=== PATIENT | female | born 1985 | race Two or more races ===

== ENCOUNTER 2021-08-04 12:53 | Outpatient (REF) | payer MEDICAID, SELFPAY ==
--- NOTE | ~2021-08-04 | XR_ITS ---
EXAMINATION: XR knee LT 4V, XR knee RT 4V CLINICAL INFORMATION: Pain COMPARISON: None TECHNIQUE: 4 views of the bilateral knees XR/XR knee LT 4V FINDINGS/IMPRESSION: RIGHT KNEE: No acute fracture or dislocation. Joint spaces are maintained. No joint effusion. Soft tissues are unremarkable. LEFT KNEE: No acute fracture or dislocation. Joint spaces are maintained. No joint effusion. Soft tissues are unremarkable.
--- NOTE | ~2021-08-04 | XR_ITS ---
EXAMINATION: XR knee LT 4V, XR knee RT 4V CLINICAL INFORMATION: Pain COMPARISON: None TECHNIQUE: 4 views of the bilateral knees XR/XR knee RT 4V FINDINGS/IMPRESSION: RIGHT KNEE: No acute fracture or dislocation. Joint spaces are maintained. No joint effusion. Soft tissues are unremarkable. LEFT KNEE: No acute fracture or dislocation. Joint spaces are maintained. No joint effusion. Soft tissues are unremarkable.
== END 2021-08-04 12:54 | disposition home or self-care (01) ==
LOC: HO.XRAY 12:53
PROVIDERS: Absent Provider Internal Medicine; PCP Internal Medicine; Visit Provider Registered Nurse
DX: M25.561 Pain in right knee (principal); M25.562 Pain in left knee
CPT/HCPCS: 73564

== ENCOUNTER 2022-01-25 13:39 | Outpatient (REF) | payer MEDICAID, SELFPAY ==
--- NOTE | ~2022-01-25 | XR_ITS ---
EXAMINATION: XR ABDOMEN COMPLETE CLINICAL INDICATION: Drug-induced constipation. COMPARISON: None TECHNIQUE: 2 views of the abdomen. FINDINGS: There is scattered stool seen throughout the colon without any significant distention. There is no organomegaly. No radiopaque calculi. No gross bony abnormality. There are surgical adi seen in the left upper quadrant from previous intervention. XR/XR abdomen min 2V IMPRESSION: Mild constipation. Postsurgical changes in the left upper quadrant.
== END 2022-01-25 13:40 | disposition home or self-care (01) ==
LOC: HO.LAB 13:39
PROVIDERS: PCP Internal Medicine; Visit Provider Internal Medicine
DX: K59.03 Drug induced constipation (principal)
CPT/HCPCS: 74019

== ENCOUNTER 2022-04-05 10:03 | Outpatient (REF) | payer MEDICAID, SELFPAY ==
--- NOTE | ~2022-04-05 | XR_ITS ---
EXAMINATION: XR LUMBOSACRAL SPINE WITH OBLIQUES CLINICAL INFORMATION: Low back pain COMPARISON: MR abdomen 12/24/2018. TECHNIQUE: Lumbosacral spine is imaged in 5 views including oblique projections. FINDINGS: There is normal lumbar segmentation with 5 nonrib-bearing lumbar vertebrae of normal height and normal lumbar lordosis. There is no lumbar vertebral compression, spondylolisthesis, or destructive process. There is no focal disc narrowing or endplate sclerosis or erosive changes. Oblique view show no spondylolysis. The SI joints and visualized sacrum are unremarkable. XR/XR lumbar spine 4V min IMPRESSION: Unremarkable examination.
== END 2022-04-05 10:04 | disposition home or self-care (01) ==
LOC: HO.XRAY 10:03
PROVIDERS: PCP Internal Medicine; Visit Provider Emergency Medicine
DX: M54.50 Low back pain, unspecified (principal)
CPT/HCPCS: 72110

== ENCOUNTER 2022-07-07 03:10 | Emergency (ER) | payer MEDICAID, SELFPAY ==
[2022-07-07 03:23] VITALS: BP 115/61; PULSE 99; RESP 16; TEMP 36.6; O2SAT 100; BMI 38.4
--- NOTE | 2022-07-07 03:27 | ECG_ITS ---
Test Reason : ABD PAIN Blood Pressure : / mmHG Vent. Rate : 091 BPM Atrial Rate : 091 BPM P-R Int : 142 ms QRS Dur : 074 ms QT Int : 354 ms P-R-T Axes : 050 075 028 degrees QTc Int : 435 ms Normal sinus rhythm Normal ECG No significant changes when compared with the previous EKG of 18 may 2018 Referred By: Generic ED Physician Electronically Signed By:MOUNIKA MARIE
--- OUTSIDE RECORDS SUMMARY | 2022-07-07 03:55 | XMS_ITS | Continuity of Care Document ---
:1985 Author Organization [facility] Address [address] [place] [id number]- Care Team Providers Name Role Phone Jamie CAMARGO, Alexandra Amor Primary Care Physician [place] [facility] [place]17[place] - 10/17/[address] [address]- Discharge Disposition: A-D/C Walkout Attending Physician: Not on Staff, Attending MD Admitting Physician: Not on Staff, Admitting MD Referring Physician: Not on Staff, Referring MD Allergies, Adverse Reactions, Alerts Substance Reaction Severity Status dandelion Active Immunizations Given and Recorded Vaccine Date Status Refusal Reason pneumococcal 23-valent vaccine1 03/10/13 Given 1Early/Late Reason: Med Not Available Medications [place] 0.025% ophthalmic solution 1 drops, Eyes, Both, Every 8 hours, # 10 mL, 0 Refills, Maintenance, Solution Start Date: 08/10/12 Status: OrderedAlbuterol = 2.5 mg, 0 Refills, Maintenance Start Date: 08/10/12 Status: OrderedColace sodium 100 mg oral capsule 2 capsule = 200 mg, By Mouth, 2 times a day, PRN for constipation, # 120 capsule, 11 Refills, Maintenance, Capsule, 2 capsule By Mouth 2 times a day,x30 days,PRN:for constipation Start Date: 02/08/13 Stop Date: 02/03/14 Status: OrderedDulcolax 5 mg oral enteric coated tablet 2 tablet = 10 mg, By Mouth, Every 72 hours, PRN for constipation, # 20 tablet, 11 Refills, Maintenance, EC Tablet, 2 tablet By Mouth Every 72 hours,x30 days,PRN:for constipation Start Date: 02/08/13 Stop Date: 02/03/14 Status: Orderedfluticasone 50 mcg/inh nasal spray 2 sprays, Daily, 0 Refills, Maintenance Start Date: 08/10/12 Status: Orderedibuprofen 600 mg oral tablet 1 tablet = 600 mg, By Mouth, 3 times a day, with food or milk, # 30 tablet, 0 Refills, Maintenance Start Date: 04/02/13 Stop Date: 04/07/13 Status: Orderedloratadine 10 mg oral tablet 1 tablet = 10 mg, By Mouth, Daily, 0 Refills, Maintenance Start Date: 08/10/12 Status: OrderedMaalox Plus Liquid 30 mL, By Mouth, Every 4 hours, PRN Dyspepsia, 0 Refills, Maintenance, Suspension Start Date: 03/10/13 Status: OrderedMiraLax oral powder for reconstitution = 17 Gm, By Mouth, 2 times a day, # 1,020 Gm, 11 Refills, Maintenance, 17 Gm By Mouth 2 times a day Start Date: 02/08/13 Stop Date: 02/03/14 Status: Orderedomeprazole 20 mg oral enteric coated capsule 1 capsule = 20 mg, By Mouth, Daily, 0 Refills, Maintenance Start Date: 02/08/13 Status: Orderedondansetron 4 mg oral tablet 1 tablet = 4 mg, By Mouth, Every 8 hours, # 10 tablet, 0 Refills, Maintenance Start Date: 04/02/13 Status: OrderedProventil HFA 90 mcg/inh inhalation aerosol with adapter 2 puffs, Inhalation, 4 times a day, 0 Refills, Maintenance Start Date: 08/10/12 Status: OrderedPulmicort Flexhaler 180 mcg 2 puffs, Inhalation, 2 times a day, 0 Refills, Maintenance Start Date: 08/10/12 Status: OrderedSaline Nasal Mist See Instructions, 0 Refills, Maintenance Start Date: 08/10/12 Status: Ordered Vital Signs Most recent to oldest [Reference 1 2 3 Range]: Oxygen Saturation [94-100 %] 98 % 100 % 100 % (10/17/21 12:14 PM) (10/17/21 7:52 AM) (10/17/21 7:40 AM) Pulse Rate [55-90 bpm] 78 bpm 84 bpm 108 bpm (10/17/21 12:14 PM) (10/17/21 7:52 AM) *H* (10/17/21 7:40 AM) Blood Pressure [90-138/55-84 mm 127/57 mm Hg 126/61 mm Hg Hg] (10/17/21 12:14 PM) (10/17/21 7:52 AM) Respiratory Rate [16-30 br/min] 16 br/min (10/17/21 7:52 AM) Temperature [96.8-100.4 DegF] 98.8 DegF 98.4 DegF (10/17/21 12:14 PM) (10/17/21 7:52 AM) Mode of Delivery (Oxygen) Room air Room air Room a ir (10/17/21 12:14 PM) (10/17/21 7:52 AM) (10/17/21 7:40 AM) Blood pressure sites Arm, right Arm, right (10/17/21 12:14 PM) (10/17/21 7:52 AM) Temperature Route Oral Oral (10/17/21 12:14 PM) (10/17/21 7:52 AM)
--- OUTSIDE RECORDS SUMMARY | 2022-07-07 03:55 | XMS_ITS | Continuity of Care Document ---
:1985 Author Organization [facility] Address [address] [place] [id number]- Care Team Providers Name Role Phone Korey OLIVEIRA, Maya Primary Care Physician Encounter [facility] [place] Date(s): 06/18/22 - 06/18/[address] [address]- Discharge Disposition: A-D/C Walkout Attending Physician: Not [...] Refills, Maintenance Start Date: 08/10/12 Status: Ordered Problem List Condition Confirmation Course Effective Dates Status Health Stat us Informant Obese class I Confirmed Active Vital Signs Most recent to oldest [Reference 1 2 3 Range]: Oxygen Saturation [94-100 %] 100 % 98 % 100 % (06/18/22 3:08 PM) (06/18/22 1:14 PM) (06/18/22 11:06 AM) Pulse Rate [55-90 bpm] 73 bpm 78 bpm 78 bpm (06/18/22 3:08 PM) (06/18/22 1:14 PM) (06/18/22 11:06 AM) Blood Pressure [90-138/55-84 mm 111/48 mm Hg 118/56 mm Hg 111/61 mm Hg Hg] (06/18/22 3:08 PM) (06/18/22 1:14 PM) (06/18/22 11:06 AM) Respiratory Rate [16-30 br/min] 18 br/min 20 br/min (06/18/22 11:06 AM) (06/18/22 2:35 AM) Temperature [96.8-100.4 DegF] 98.3 DegF 98.4 DegF 98 .0 DegF (06/18/22 3:08 PM) (06/18/22 1:14 PM) (06/18/22 11:06 AM) Mode of Delivery (Oxygen) Room air Room air Room a ir (06/18/22 3:08 PM) (06/18/22 1:14 PM) (06/18/22 11:06 AM) Blood pressure sites Arm, right Arm, right Arm, right (06/18/22 3:08 PM) (06/18/22 1:14 PM) (06/18/22 11:06 AM) Temperature Route Oral Oral Oral (06/18/22 3:08 PM) (06/18/22 1:14 PM) (06/18/22 11:06 AM) Patient Care team information Care Team PersonnelName: Maya Nair MD Position: [facility] Outreach Member Role: PCP Address: Address: [address] [place] [address]- Care Team Related PersonsName: JAYLIN RILEY Address: home [address] [place] [address] Name: PT SAYS NONE, NONE
[2022-07-07 04:17] VITALS: BP 115/57; PULSE 94; RESP 17; TEMP 36.8; O2SAT 96
--- NOTE | 2022-07-07 05:42 | ED_ITS ---
HPI - Abdominal Pain General Chief Complaint: Abdominal Pain Stated Complaint: pain in abd Time Seen by Provider: 07/07/22 05:42 Source: patient Mode of arrival: ambulatory Limitations: no limitations History of Present Illness HPI narrative: patient with history of hiatal hernia status post cholecystectomy been having epigastric pain off and on since 1222 been to [facility] did a CT scan diagnosed her with hiatal hernia plan to see tour narrator for endoscopy also patient complaining of dysuria for last 4 months no fever no chills no nausea no vomiting Related Data Allergies Allergy/AdvReac Type Severity Reaction Status Date / Time No Known Allergies Allergy Unverified 02/27/20 16:07 [No Known Allergies*] Review of Systems Review of Systems Yes all other systems are reviewed and are [facility] Social History Social History Advance Directives: No Physical Exam ED Vital Signs: Vital Signs - 24 hr 07/07/22 03:23 07/07/22 04:17 07/07/22 06:29 Temperature 97.9 F 98.2 F Pulse Rate 99 94 80 Respiratory Rate 16 17 18 Blood Pressure 115/61 115/57 L 104/52 L Pulse Oximetry 100 96 98 Oxygen Delivery Method Room Air Room Air 07/07/22 07:00 Temperature 98.5 F Pulse Rate 86 Respiratory Rate 14 Blood Pressure 118/58 L Pulse Oximetry 98 Oxygen Delivery Method Room Air BMI result Body Mass Index 38.4 Appearance: Alert. Oriented X3. No acute distress. Eyes: no pallor or icterus ENT: Pharynx normal. Oral Mucosa moist Neck: Normal inspection. Neck supple. CVS: Normal heart rate and rhythm. Pulses normal. Respiratory: No respiratory distress. Equal air entry bilateral, Abdomen: Soft, mild epigastric tendernessBowel sounds are present, no mass palpable, no CVA tenderness Skin: Skin warm and dry. Normal skin color. Normal skin turgor. Extremities: No lower extremity edema. No calf tenderness Neuro: Oriented X 3. Medical Decision Making Lab Data Labs: Lab Results 07/07/22 07/07/22 Range/Units 06:02 06:02 Urine Color Yellow Urine Appearance Clear Urine pH 6.0 (5.0-9.0) Ur Specific [place] 1.025 (1.005-1.025) Urine Protein Negative (Neg-Trace) mg/dL Urine Glucose (UA) Negative (Negative) mg/dL Urine Ketones Negative (Negative) mg/dL Urine Blood Negative (Negative) Urine Nitrite Negative (Negative) Ur Leukocyte Esterase Moderate (2+) H (Negative) Urine RBC 0-2 (0-2) /HPF Urine WBC 11-20 H (0-5) /HPF Ur Squamous Epith Cells 3-5 (0-2) /HPF Urine Bacteria None Seen (None Seen) Hyaline Casts 0-2 (0-2) /LPF Urine Test NEGATIVE (NEGATIVE) Medications Administered Discontinued Medications Generic Name Dose Route Start Last Admin Trade Name Freq PRN Reason Stop Dose Admin Al Hydroxide/Mg Hydroxide 30 ml 07/07/22 05:53 07/07/22 06:00 Magnesium Hydrox/Alum Hydrox 30 Ml Oral.Susp PO 07/07/22 05:54 30 ml ONCE ONE Administration Discharge Plan Discharge Clinical Impression: Chronic gastritis, UTI (urinary tract infection) Patient Disposition: Home, Self-Care Instructions: Gastritis (ED), Urinary Tract Infection in Women (ED) Additional Instructions: continue taking Prilosec start taking sucralfate an antibiotic for UTI follow-up with your tour narrator as scheduled avoid fried and spicy food
[2022-07-07] MEDS: Magnesium Hydrox/Alum Hydrox 30 ML ORAL.SUSP PO (06:00)
[2022-07-07 06:11] LABS: Appearance Urine Clear; Color Urine Yellow; Glucose Urine UA Negative (Negative); Leukocyte Esterase Urine Moderate (2+) (Negative); Nitrite Urine Negative (Negative); Specific Gravity - Urine 1.025 (1.005-1.025); UMIC TRIGGER UACC YES; Urine Blood Negative (Negative); Urine Ketones Negative (Negative); Urine Protein Negative (Neg-Trace)
[2022-07-07 06:12] LABS: UPreg QC Valid YES; Urine Pregnancy NEGATIVE (NEGATIVE)
--- NOTE | 2022-07-07 06:13 | PC.NURSE ---
pt resting on stretcher at this time, no apparent distress. Medicated per MAR, urine sample collected
[2022-07-07 06:16] LABS: Bacteria Urine None Seen (None Seen); Hyaline Casts Urine 0-2 /LPF (0-2); RBC Urine 0-2 /HPF (0-2); UACC Culture Trigger YES
[2022-07-07 06:29] VITALS: BP 104/52; PULSE 80; RESP 18; O2SAT 98
[2022-07-07 07:00] VITALS: BP 118/58; PULSE 86; RESP 14; TEMP 36.9; O2SAT 98
== END 2022-07-07 07:18 | disposition home or self-care (01) ==
PROVIDERS: Emergency Provider Internal Medicine
DX: K29.50 Unspecified chronic gastritis without bleeding (principal); N39.0 Urinary tract infection, site not specified; Z79.899 Other long term (current) drug therapy
CPT/HCPCS: 81001; 81025; 87086; 93005; 99283; 99284

== ENCOUNTER 2022-08-16 10:57 | Outpatient (REF) | payer MEDICAID, SELFPAY ==
--- NOTE | ~2022-08-16 | XR_ITS ---
EXAMINATION: XR KNEE, RIGHT CLINICAL INFORMATION: Chronic pain. Checking patellar alignment. COMPARISON: None TECHNIQUE: Two views of the right knee. FINDINGS: Bones and soft tissues are normal. No fracture or joint effusion. Alignment is anatomic. Joint spaces are well maintained. No abnormal soft tissue calcification. XR/XR knee RT 2V IMPRESSION: Unremarkable right knee exam.
== END 2022-08-16 10:58 | disposition home or self-care (01) ==
LOC: HO.XRAY 10:57
PROVIDERS: PCP Registered Nurse; Visit Provider Registered Nurse
DX: M25.561 Pain in right knee (principal); G89.29 Other chronic pain
CPT/HCPCS: 73560

== ENCOUNTER 2022-09-12 08:08 | Outpatient (REF) | payer MEDICAID, SELFPAY ==
[2022-09-12 16:56] LABS: Urine Cytology See Pathology rpt
== END 2022-09-12 08:09 | disposition home or self-care (01) ==
LOC: HO.LAB 08:08
PROVIDERS: PCP Registered Nurse; Visit Provider Urology
DX: N39.41 Urge incontinence (principal)
CPT/HCPCS: 51798; 88112; 99202

== ENCOUNTER 2022-10-17 09:25 | Outpatient (REF) | payer MEDICAID, SELFPAY ==
--- NOTE | ~2022-10-17 | US_ITS ---
EXAMINATION: US RETROPERITONEAL LIMITED (RENAL ONLY) CLINICAL INFORMATION: Other symptoms and signs involving the genitourinary system. COMPARISON: X-ray abdomen 01/25/2022. MRI abdomen 12/24/2018. Ultrasound abdomen complete with elastography 06/27/2018. Ultrasound abdomen 12/17/2008. TECHNIQUE: Real-time imaging of the kidneys. FINDINGS: RIGHT KIDNEY: 10.2 x 5.7 x 5.5 cm (SAG x AP x TRV). The kidney is normal in size, contour, and echogenicity. Renal cortical thickness is normal. There are 2 small echogenic foci in the midpole of the right kidney questionable small stones versus vascular reflectors. No focal parenchymal lesions. No hydronephrosis. LEFT KIDNEY: 10.3 x 4.7 x 5.6 cm (SAG x AP x TRV). The kidney is normal in size, contour, and echogenicity. Renal cortical thickness is normal. No calculi or focal parenchymal lesions. No hydronephrosis. US/US renal BI IMPRESSION: No definite stone seen. Question 2 small stones in the midpole of the right kidney versus vascular reflectors.
== END 2022-10-17 09:26 | disposition home or self-care (01) ==
LOC: HO.US 09:25
PROVIDERS: PCP Registered Nurse; Visit Provider Urology
DX: R39.89 Other symptoms and signs involving the genitourinary system (principal); N39.41 Urge incontinence
CPT/HCPCS: 76775

== ENCOUNTER 2022-11-14 11:54 | Outpatient (REF) | payer MEDICAID, SELFPAY ==
--- NOTE | ~2022-11-14 | XR_ITS ---
EXAMINATION: XR LUMBOSACRAL SPINE CLINICAL INFORMATION: Back pain for one month. COMPARISON: None available. TECHNIQUE: Three views of the lumbosacral spine. FINDINGS: The vertebral bodies and posterior elements are normal. The disc spaces are preserved and the vertebral alignment is normal. The paraspinal soft tissues appear unremarkable. Upper abdominal and right lower quadrant surgical clips. XR/XR lumbar spine 2-3V IMPRESSION: Unremarkable examination.
== END 2022-11-14 11:55 | disposition home or self-care (01) ==
LOC: HO.HHCX 11:54
PROVIDERS: Visit Provider Registered Nurse
DX: M54.50 Low back pain, unspecified (principal)
CPT/HCPCS: 72100

== ENCOUNTER → 2022-11-18 09:40 | Outpatient (BNVA) | payer MEDICAID, SELFPAY | PROVIDERS: PCP Registered Nurse; Visit Provider Urology | DX: N81.89 Other female genital prolapse (principal); R39.89 Other symptoms and signs involving the genitourinary system; N39.41 Urge incontinence | CPT/HCPCS: 99212 ==

== ENCOUNTER 2022-12-23 13:54 | Outpatient (REF) | payer MEDICAID, SELFPAY ==
[2022-12-23 16:06] LABS: MANUAL DIFF FLAG NO
[2022-12-23 16:17] LABS: Basophils Absolute Auto 0.1 X10*3/uL (0.0-0.2); Basophils Percent Auto 0.7 % (0-2); Eosinophils Absolute Auto 0.1 X10*3/uL (0.0-0.4); Eosinophils Percent Auto 1.5 % (0-4); Hematocrit 38.3 % (37.0-47.0); Hemoglobin 12.3 g/dl (12.0-16.0); Imm Gran Abs Auto 0.08 X10*3/uL (0.00-0.03); Imm Gran Pct Auto 0.9 % (0.0-0.4); Lymphocytes Absolute Auto 2.7 X10*3/uL (1.2-4.9); Mean Corpuscular HGB Conc 32.1 g/dl (31.0-35.0); Mean Corpuscular Hemoglobin 26.8 pg (27.0-33.0); Mean Corpuscular Volume 83.4 fL (80.0-98.0); Mean Platelet Volume 11.2 fL (9.4-12.3); Monocytes Absolute Auto 0.5 X10*3/uL (0.1-1.2); Monocytes Percent Auto 5.6 % (2-11); Neutrophils Absolute Auto 5.9 x10*3/uL (2.0-8.3); Neutrophils Percent Auto 62.3 % (45-73); Platelet Count 382 X10*3/uL (160-400); Red Blood Count 4.59 X10*6/uL (4.20-5.50); Red Cell Distribution Width 14.2 % (11.0-16.0); White Blood Count 9.4 X10*3/uL (4.8-10.8)
[2022-12-23 16:54] LABS: Alanine Aminotransferase 10 U/L (0-31); Albumin Level 4.2 g/dL (3.5-5.0); Alkaline Phosphatase 112 U/L (39-117); Anion Gap 12 (12-20); Aspartate Amino Transferase 13 U/L (5-31); Bilirubin Total 0.3 mg/dL (0.0-1.0); Blood Urea Nitrogen 11 mg/dL (9-16); Calcium 10.1 mg/dL (8.4-10.2); Carbon Dioxide 24 mmol/L (22-29); Chloride 107 mmol/L (96-108); Estimated Glomerular Filt Rate > 60; Glucose Random 82 mg/dL (60-115); Lipase 13 U/L (8-78); Sodium 139 mmol/L (135-145); Total Protein 7.9 g/dL (6.5-8.0)
[2022-12-23 17:23] LABS: Vitamin B12 518 pg/mL (200-900)
== END 2022-12-23 13:55 | disposition home or self-care (01) ==
LOC: HO.HHCL 13:54
PROVIDERS: Visit Provider Emergency Medicine
DX: R10.13 Epigastric pain (principal)
CPT/HCPCS: 36415; 80053; 82607; 83690; 85025

== ENCOUNTER 2023-01-19 14:00 | Outpatient (RCR) | payer MEDICAID, SELFPAY ==
--- NOTE | 2023-01-03 09:57 | MHC.PT.EP ---
[facility] [place] Office [place] Office [place] Office [address] Erin Chau [address] [phone] F: [phone] F: [phone] F: [phone] F: [phone] Physical Therapy Plan of Care Date of Evaluation: Date of Surgery: NA Diagnosis: Other female genital prolapse Urge incontinence Assessment: Yoselyn is a 37 year old female who is referred to PT for other female genital prolapse and urge incontinence . She reports of having symptoms of urinary urgency, UI with coughing, sneezing, laughing, running, walking, and lifting boxes. She also reports of having UI with running water. In addition she urinates 5/day and 3/ night. Also reports of having constipation- 2 BM/ week, pain in lower abdomen at the end of the day and pain at the vaginal opening during penetration. She has had these symptoms since the of her 4th child in Mar 2020. On PT examination she presents with poor voluntary and involuntary contraction, pain externally over B ischiocavernosus, internally over B ischiocavernosus, B superficial and deep transverse perineal, B illiococcygeus, B OI and 11o clock position on the 2nd layer. Due to these impairments she has the above mentioned functional impairments. She would benefit from skilled PT to address the aforementioned impairments and improve tolerance to functional activities. Frequency and Duration: The patient will be seen 1/week for 8 weeks Short Term Goals: 1. Pt will report of having decrease in [place] 50% in 2 weeks. 2. Pt will drop night voiding from 3 to 1 in 3 weeks. 3. Pt will present with no pain with internal exam which will enable her to tolerate penetration during sexual activity without pain in 4 weeks. Long-Term Goals: 1. Pt will demonstrate an increase in PFM muscle strength by 1 grade which will prevent any UI with walking, lifting and running in 6 weeks. 2. Pt will be independent with [facility] for symptom management and maintenance following d/c in 8 weeks. Treatment Plan: Modalities to reduce pain, spasms and effusion. Manual therapy to restore motion and function. Therapeutic exercise to improve strength and flexibility. Neuromuscular re-education for posture and balance. Therapeutic activities to return to functional activities of daily living. Electronically signed by: Please sign and return to therapist. Thank you for your referral.
--- NOTE | 2023-02-09 10:24 | MHC.PT.DC ---
[facility] [place] Office [place] Office [place] Office [address] Erin Chau [address] [phone] F: [phone] F: [phone] F: [phone] F: [phone] Physical Therapy Discharge Report Diagnosis: Other female genital prolapse Urge incontinence Date of Surgery: NA Date of Evaluation: 01/03/23 Date of Discharge: 02/09/23 Treatments to Date: 3 Cancellations to Date: 0 No Shows to Date: 3 Discharge Status: Visit Non-compliance Discharge Summary: Yoselyn attended 3 visits and no showed 3 after that. She is therefore being d/c from PT for non compliance. Electronically signed by: Rama Wiley PT DPT Please sign and return to therapist. Thank you for your referral.
== END 2023-02-09 10:25 | disposition home or self-care (01) ==
LOC: HO.PT 14:00
PROVIDERS: PCP Registered Nurse; Visit Provider Urology
DX: N81.89 Other female genital prolapse (principal); N39.41 Urge incontinence
CPT/HCPCS: 97110; 97112; 97140; 97161

== ENCOUNTER 2023-01-27 18:34 | Outpatient (REF) | payer MEDICAID, SELFPAY ==
[2023-01-27 19:58] LABS: Influenza A PCR NEGATIVE (Negative); Influenza B PCR NEGATIVE (Negative); Resp Syncy Virus RNA Qual PCR NEGATIVE (Negative); SARS COV2 PCR INHOUSE NEGATIVE (Negative)
== END 2023-01-27 18:35 | disposition home or self-care (01) ==
LOC: HO.HHCLNP 18:34
PROVIDERS: Visit Provider Nurse Practitioner Primary Care
DX: Z20.822 Contact with and (suspected) exposure to COVID-19 (principal); J02.9 Acute pharyngitis, unspecified
CPT/HCPCS: 0241U; 87070

== ENCOUNTER 2023-03-09 08:15 | Outpatient (REF) | payer MEDICAID, SELFPAY ==
--- NOTE | ~2023-03-09 | CT_ITS ---
EXAMINATION: CT ABDOMEN AND PELVIS WITHOUT CONTRAST CLINICAL INFORMATION: Other abnormal findings in urine COMPARISON: Previous renal ultrasound October 2022, and abdominal MRI December 2018 TECHNIQUE: Multidetector volumetric imaging was performed from the superior aspect of the liver through the pubic symphysis. Sagittal and coronal reformatted images were obtained on the technologist's workstation. This CT examination was performed using dose optimization techniques as appropriate, variously including the following: *Automated exposure control *Adjustment of mA and/or kV according to patient size (this includes techniques or standardized protocols for targeted exams where dose is matched to indication/reason for exam; i.e. extremities or head) *Use of iterative reconstruction technique DLP: 687 mGy-cm FINDINGS: LUNG BASES: The visualized lung bases are unremarkable. LIVER, GALLBLADDER, AND BILIARY TREE: The liver is normal in size, and contour. There is a 1.3 x 2 cm low-attenuation area in the medial segment of the left lobe of the liver. This is new from previous exams. No other focal liver lesion. No biliary duct dilatation. The gallbladder has been removed. PANCREAS: Unremarkable. SPLEEN: Unremarkable. ADRENAL GLANDS: Unremarkable. KIDNEYS AND URETERS: The 3 mm nonobstructing stone in the mid left kidney. The kidneys are otherwise normal. BLADDER: Not optimally distended. GASTROINTESTINAL TRACT: The small and large bowel are unremarkable. The appendix is unremarkable. Postsurgical changes from gastric sleeve. ABDOMINAL WALL: No significant hernia is appreciated. LYMPH NODES: Normal. VASCULAR: Unremarkable. PELVIC VISCERA: Unremarkable. OSSEOUS STRUCTURES: Unremarkable. CT/CT abdomen pelvis wo IV con IMPRESSION: Small nonobstructing stone in the mid left kidney. Kidneys are otherwise normal. Bladder not optimally distended. New 1.3 x 2 cm low-attenuation area in the medial segment of the left lobe of the liver. Further characterization with liver MRI recommended. 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 Fleischner guidelines were followed.
== END 2023-03-09 08:16 | disposition home or self-care (01) ==
LOC: HO.CT 08:15
PROVIDERS: PCP Registered Nurse; Visit Provider Urology
DX: R82.998 Other abnormal findings in urine (principal); N28.89 Other specified disorders of kidney and ureter
CPT/HCPCS: 74176

== ENCOUNTER 2023-03-13 08:21 | Outpatient (AMB) | payer MEDICAID, SELFPAY ==
--- NOTE | 2023-03-13 08:23 | A.OFFVIS_ITS ---
Intake Intake Visit Reasons: follow up/CT Intake Note: Patient presents today for a follow-up on Urinary Incontinence/CT Scan Results: CT Completed on 03/09/2023. Meds- Myrbetriq Allergies to Antibiotic- No Known Allergies Blood Thinner- None PVR- 35 mL Distance Education Faculty Liaison Required: No Accompanied by: Self / Same As Patient Allergies No Known Allergies [No Known Allergies*] Allergy (Verified 11/18/22 10:01) Medication List - Last Reconciled 03/13/23 by Samreen Gil MD albuterol sulfate 90 mcg/actuation (Ventolin HFA) 0 mcg inhalation fluticasone propionate 50 mcg/actuation 1 spray intranasal DAILY loratadine 10 mg PO QAM mirabegron ER (Myrbetriq) 25 mg PO DAILY sodium chloride 0.65% (Deep Sea Nasal) 2 sprays intranasal HPI HPI Comments History of Present Illness Details Yoselyn is a 37-year-old female who presents today to the office for a follow-up. 03/13/2023? She is followed today for CT. She was last seen by me on 11/18/2022 for pelvic floor weakness and LUTS. Renal US results reviewed--10/17/22--Calcifications noted and it was unclear that if it might have been? stones versus vascular calcification.?CT KUB prior was ordered for further evaluation, and Myrbetriq 25 mg QD was ordered during that time. I reviewed the CT abdomen/pelvis results from 03/09/2023 revealed small nonobstructing stone in the mid left kidney. Kidneys are otherwise normal. Bladder not optimally distended. New 1.3 x 2 cm low- attenuation area in the medial segment of the left lobe of the liver.? She mentions that she is still having urine leakage with coughing and sneezing. She has been taking Myrbetriq 25 mg. Notes that the urinary urgency has improved. Review of charts: Last visit: 11/18/22-- The patient was scheduled for cystoscopy which she canceled as she was sick. I discussed with her renal US findings of 10/17/22 which are indicative of no renal masses and calcifications noted which were unclear for stones versus vascular calcification.? The patient complains having urinary urgency and leakage with sneezing.? Denies dysuria.? Renal US results reviewed--10/17/22--Calcifications noted and it was unclear that if it might have been? stones versus vascular calcification.? Urine cytology?09/12/22--Negative for malignancy.? Evaluation today-- Blood: negative, leukocytes: negative.? Plan:? At this time will hold on cystoscopy. Discussed to start with PT for strengthening the pelvic muscles.? CT KUB prior was ordered for further evaluation.? Myrbetriq 25 mg QD was ordered.? Follow-up after 4 months or sooner if needed. 03/13/2023: Evaluation today?UA? leukocy elan: negative; blood: negative; bladder scan PVR: 35 mL. Diet sheet for renal calculi prevention was provided to the patient. Discussed to reduce sodium intake. Discussed to consume adequate amount of water. Discussed Low oxalate diet---green leafy vegetable, nuts, and tea in moderation as they are rich in oxalate. 03/13/2023: Plan: Continue Myrbetriq 25 mg. Diet sheet was provided. 24-hour urine collection test was tyrone lima. Referred to Gastroenterology due to CAT scan findings of liver lesion. Will schedule urodynamics. Follow-up in 10 weeks. [facility] Medical History Dysphagia Rectal bleeding Anemia Asthma Surgical History History of sleeve gastrectomy Family History Father No problems noted. Mother No problems noted. Social History Alcohol intake: current Alcohol intake frequency: does not drink Patient Tobacco Use Status: Never used Tobacco Review of Systems Const Reports no additional complaints Eyes Reports no additional complaints ENT Reports no additional complaints Card Denies dyspnea Resp Denies cough and Denies dyspnea GI Reports no additional complaints Reports no additional complaints Musc Reports no additional complaints Skin/Breast Denies rash and Denies unusual bruising Neuro Reports no additional complaints Psych Reports no additional complaints Endo Reports no additional complaints Raul/Lymph Reports no additional complaints Aller/Immun Reports no additional complaints Physical Exam Const General: cooperative, healthy appearing and no acute distress Orientation/consciousness: patient oriented x3 HEENT Head: Yes normal to inspection, Yes normocephalic and Yes atraumatic Eyes Conjunctivae: conjunctivae normal Neck Neck: Yes normal visual inspection and Yes trachea midline Chest Chest palpation & inspection: normal inspection of the chest Resp Effort & Inspection: normal respiratory effort Cardio Rate: regular rate GI Inspection: Yes normal to inspection Skin General skin exam: no rashes or lesions noted Neuro General: patient oriented x3 Extrem General: No edema Psych Appearance: grossly normal Office Procedures Post Void Residual Post Residual Void Post Void Residual (PVR): 35 [id number] Void Residual by ultrasound Results AMB Urinalysis, Automated UA Leukoctes 0 Shai/uL Last Edit by MIAH Johnson on 03/13/23 08:44 UA Nitrite Negative Last Edit by MIAH Johnson on 03/13/23 08:44 UA Urobilinogen 1 mg/dL Last Edit by MIAH Johnson on 03/13/23 08:44 UA Protein 30 mg/dL Last Edit by MIAH Johnson on 03/13/23 08:44 UA pH 6.0 Last Edit by MIAH Johnson on 03/13/23 08:44 UA Blood 0 Frank/uL Last Edit by MIAH Johnson on 03/13/23 08:44 UA Specific [place] 1.030 Last Edit by MIAH Johnson on 03/13/23 08: 44 UA Ketone Positive Last Edit by MIAH Johnson on 03/13/23 08:44 5mg/dL Alfredo Jean 03/13/23 08:44 UA Bilirubin 1 mg/dL Last Edit by MIAH Johnson on 03/13/23 08:44 UA Glucose 0 mg/dL Last Edit by MIAH Johnson on 03/13/23 08:44 Results Reviewed Results Reviewed: Laboratory Last Values Urine pH (Auto) 6.0 03/13/23 08:25 Specific [place] (Auto) 1.030 03/13/23 08:25 Urine Protein (Auto) 30 mg/dL 03/13/23 08:25 Glucose (UA)(Auto) 0 mg/dL 03/13/23 08:25 Urine Ketones (Auto) Positive 03/13/23 08:25 Urine Blood (Auto) 0 Frank/uL 03/13/23 08:25 Urine Nitrite (Auto) Negative 03/13/23 08:25 Urine Bilirubin (Auto) 1 mg/dL 03/13/23 08:25 Urine Urobilinogen (Auto) 1 mg/dL 03/13/23 08:25 Leukocyte Esterase (Auto) 0 Shai/uL 03/13/23 08:25 Date of Service: 03/09/23 EXAMINATION: CT ABDOMEN AND PELVIS WITHOUT CONTRAST?? CLINICAL INFORMATION: Other abnormal findings in urine?? COMPARISON: Previous renal ultrasound October 2022, and abdominal MRI December 2018 FINDINGS: LUNG BASES: The visualized lung bases are unremarkable.?? LIVER, GALLBLADDER, AND BILIARY TREE: The liver is normal in size, and contour. There is a 1.3 x 2 cm low-attenuation area in the medial segment of the left lobe of the liver. This is new from previous exams. No other focal liver lesion. No biliary duct dilatation. The gallbladder has been removed. PANCREAS: Unremarkable.?? SPLEEN: Unremarkable.?? ADRENAL GLANDS: Unremarkable.?? KIDNEYS AND URETERS: The 3 mm nonobstructing stone in the mid left kidney. The kidneys are otherwise normal.?? BLADDER: Not optimally distended.?? GASTROINTESTINAL TRACT: The small and large bowel are unremarkable. The appendix is unremarkable. Postsurgical changes from gastric sleeve. ABDOMINAL WALL: No significant hernia is appreciated.?? LYMPH NODES: Normal. VASCULAR: Unremarkable. PELVIC VISCERA: Unremarkable.?? OSSEOUS STRUCTURES: Unremarkable.?? IMPRESSION: Small nonobstructing stone in the mid left kidney. Kidneys are otherwise normal. Bladder not optimally distended. New 1.3 x 2 cm low-attenuation area in the medial segment of the left lobe of the liver. Further characterization with liver MRI recommended. 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 Assessment & Plan Assessment & Plan (1) Pelvic floor weakness: Code(s): N81.89 - Other female genital prolapse (2) Sensation of pressure in bladder area: Code(s): R39.89 - Other symptoms and signs involving the genitourinary system (3) Urge incontinence of urine: Code(s): N39.41 - Urge incontinence (4) Liver lesion: Code(s): K76.9 - Liver disease, unspecified (5) Kidney stone on left side: Code(s): N20.0 - Calculus of kidney Plan Continue Myrbetriq 25 mg. Diet sheet was provided. 24-hour urine collection test was ordered. Referred to Gastroenterology due to CAT scan findings of liver lesion. Will schedule urodynamics. Follow-up in 10 weeks. Orders: Orders AMB Urinalysis Automated Today Z13.9 - Encounter for screening, unspecified AMB Post Void Residual by ultrasound Today N39.8 - Other specified disorders of urinary system Medications: Refilled mirabegron ER (Myrbetriq) 25 mg PO DAILY 90 tabs 1RF Patient Instructions: The patient had an opportunity to ask questions regarding treatment plan. All questions were answered. Imaging, Laboratory studies and physical exam results were discussed and reviewed in detail. No major barriers to understanding were identified. The patient expressed understanding and agreement with the above treatment plan.? ? ? The patient is aware they should contact our office by phone for worsening of their current condition or the appearance of new symptoms. Compliance is encouraged with any medications and followup testing that is ordered.? ? ? It is a privilege to be allowed the opportunity to participate in the urologic care of your patient. If you have any questions or concerns regarding treatment for the above conditions please do not hesitate to contact me. The office telephone contact is [phone].? ? ? This note is constructed in part using voice recognition software. While every effort has been made to ensure accuracy last chalker errors may have been included.? ? ? Yours sincerely,? ? ? Samreen Gil MD? Coding Level of Care Code Est Pt Level 4 (86270) Diagnoses Pelvic floor weakness N81.89 Sensation of pressure in bladder area R39.89 Urge incontinence of urine N39.41 Liver lesion K76.9 Kidney stone on left side N20.0 CPT Codes Post Residual Void - PVR CPT Code: 92650-Aten Void Residual by ultrasound ([id number])
== END 2023-03-13 09:24 | disposition home or self-care (01) ==
PROVIDERS: PCP Registered Nurse; Visit Provider Urology
DX: N81.89 Other female genital prolapse (principal); R39.89 Other symptoms and signs involving the genitourinary system; N39.41 Urge incontinence; K76.9 Liver disease, unspecified; N20.0 Calculus of kidney; Z13.9 Encounter for screening, unspecified
CPT/HCPCS: 99214

== ENCOUNTER → 2023-03-13 08:21 | Outpatient (BNVA) | payer MEDICAID, SELFPAY | PROVIDERS: PCP Registered Nurse; Visit Provider Urology | DX: N20.0 Calculus of kidney (principal); N39.41 Urge incontinence; N81.89 Other female genital prolapse; R39.89 Other symptoms and signs involving the genitourinary system; K76.9 Liver disease, unspecified | CPT/HCPCS: 51798; 81003; 99212 ==

== ENCOUNTER 2023-03-17 18:14 | Outpatient (REF) | payer MEDICAID, SELFPAY | END 2023-03-17 18:15 | disposition home or self-care (01) | LOC: HO.LNP 18:14 | PROVIDERS: Visit Provider Emergency Medicine | DX: R30.0 Dysuria (principal) | CPT/HCPCS: 87086 ==

== ENCOUNTER 2023-05-22 08:33 | Outpatient (AMB) | payer MEDICAID, SELFPAY ==
--- NOTE | 2023-05-22 08:34 | A.OFFVIS_ITS ---
Intake Intake Visit Reasons: 10w/litholink Intake Note: Patient presents today for a follow-up on on [employer]ol[employer] 24 hour urine collection Results. Meds- Myrbetriq Allergies to Antibiotic- No Known Allergies Blood Thinner- None Per Diem Physical Therapist Required: No Accompanied by: Self / Same As Patient Allergies No Known Allergies [No Known Allergies*] Allergy (Verified 11/18/22 10:01) Medication List - Last Reconciled 05/22/23 by Samreen Gil MD albuterol sulfate 90 mcg/actuation (Ventolin HFA) 0 mcg inhalation fluticasone propionate 50 mcg/actuation 1 spray intranasal DAILY loratadine 10 mg PO QAM mirabegron ER (Myrbetriq) 50 mg PO DAILY sodium chloride 0.65% (Deep Sea Nasal) 2 sprays intranasal HPI HPI Comments History of Present Illness Details Yoselyn is a 37-year-old female who presents today to the office for a follow-up. She is followed for LUTS of urinary incontinence, urgency and nephrolithiasis. 05/21/2023? She was last seen by me on 03/13/2023 at which time I reviewed the CT abdomen/pelvis results from 03/09/2023 which revealed small nonobstructing stone in the mid left kidney. Kidneys are otherwise normal. New 1.3 x 2 cm low- attenuation area in the medial segment of the left lobe of the liver.?And The pt was referred to GI. She has been taking Myrbetriq 25 mg. Notes that the urinary incontinence has improved. But feels still voiding frequently every 2 hrs. Discussed 24 hour urine results: Total volume 1.39 mL, Calcium 130 mg; Oxalate 17 mg, Sodium 71, Citrate 602 mg. Instructed on importance of increasein fluid intake. 05/22/2023: Evaluation today?UA? leukocy elan: 1+; blood: negative Review of charts: Imaging: Renal US results reviewed--10/17/22--Calcifications noted and it was unclear that if it might have been? stones versus vascular calcification.? CT abdomen/pelvis results from 03/09/2023 revealed small nonobstructing stone in the mid left kidney. Labs: Urine cytology?09/12/22--Negative for malignancy.? 05/22/2023: Plan: Change to increase Myrbetriq 50 mg daily from 25 mg 24-hour urine collection test reviewed. Instructed to increase fluids to 2 liters Follow-up in 4months Renal us prior [facility] Medical History Dysphagia Rectal bleeding Anemia Asthma Surgical History History of sleeve gastrectomy Family History Father No problems noted. Mother No problems noted. Social History Alcohol intake: current Alcohol intake frequency: does not drink Patient Tobacco Use Status: Never used Tobacco Review of Systems Const Reports no additional complaints Eyes Reports no additional complaints ENT Reports no additional complaints Card Denies dyspnea Resp Denies cough and Denies dyspnea GI Reports no additional complaints Reports no additional complaints Musc Reports no additional complaints Skin/Breast Denies rash and Denies unusual bruising Neuro Reports no additional complaints Psych Reports no additional complaints Endo Reports no additional complaints Raul/Lymph Reports no additional complaints Aller/Immun Reports no additional complaints Results AMB Urinalysis, Automated UA Leukoctes 70 Shai/uL Last Edit by MIAH Johnson on 05/22/23 08:50 1+ Alfredo Jean 05/22/23 08:50 UA Nitrite Negative Last Edit by MIAH Johnson on 05/22/23 08:50 UA Urobilinogen 0.2 mg/dL Last Edit by MIAH Johnson on 05/22/23 08:5 0 UA Protein 15 mg/dL Last Edit by MIAH Johnson on 05/22/23 08:50 UA pH 6.0 Last Edit by MIAH Johnson on 05/22/23 08:50 UA Blood 0 Frank/uL Last Edit by MIAH Johnson on 05/22/23 08:50 UA Specific [place] 1.020 Last Edit by MIAH Johnson on 05/22/23 08: 50 UA Ketone Negative Last Edit by MIAH Johnson on 05/22/23 08:50 UA Bilirubin 0 mg/dL Last Edit by MIAH Johnson on 05/22/23 08:50 UA Glucose 0 mg/dL Last Edit by MIAH Johnson on 05/22/23 08:50 Results Reviewed Results Reviewed: Laboratory Last Values Urine pH (Auto) 6.0 05/22/23 08:48 Specific [place] (Auto) 1.020 05/22/23 08:48 Urine Protein (Auto) 15 mg/dL 05/22/23 08:48 Glucose (UA)(Auto) 0 mg/dL 05/22/23 08:48 Urine Ketones (Auto) Negative 05/22/23 08:48 Urine Blood (Auto) 0 Frank/uL 05/22/23 08:48 Urine Nitrite (Auto) Negative 05/22/23 08:48 Urine Bilirubin (Auto) 0 mg/dL 05/22/23 08:48 Urine Urobilinogen (Auto) 0.2 mg/dL 05/22/23 08:48 Leukocyte Esterase (Auto) 70 Shai/uL 05/22/23 08:48 Date of Service: 03/09/23 EXAMINATION: CT ABDOMEN AND PELVIS WITHOUT CONTRAST CLINICAL INFORMATION: Other abnormal findings in urine COMPARISON: Previous renal ultrasound October 2022, and abdominal MRI December 2018 TECHNIQUE: Multidetector volumetric imaging was performed from the superior aspect of the liver through the pubic symphysis. Sagittal and coronal reformatted images were obtained on the technologist's workstation. This CT examination was performed using dose optimization techniques as appropriate, variously including the following: *Automated exposure control *Adjustment of mA and/or kV according to patient size (this includes techniques or standardized protocols for targeted exams where dose is matched to indication/reason for exam; i.e. extremities or head) *Use of iterative reconstruction technique DLP: 687 mGy-cm FINDINGS: LUNG BASES: The visualized lung bases are unremarkable. LIVER, GALLBLADDER, AND BILIARY TREE: The liver is normal in size, and contour. There is a 1.3 x 2 cm low-attenuation area in the medial segment of the left lobe of the liver. This is new from previous exams. No other focal liver lesion. No biliary duct dilatation. The gallbladder has been removed. PANCREAS: Unremarkable. SPLEEN: Unremarkable. ADRENAL GLANDS: Unremarkable. KIDNEYS AND URETERS: The 3 mm nonobstructing stone in the mid left kidney. The kidneys are otherwise normal. BLADDER: Not optimally distended. GASTROINTESTINAL TRACT: The small and large bowel are unremarkable. The appendix is unremarkable. Postsurgical changes from gastric sleeve. ABDOMINAL WALL: No significant hernia is appreciated. LYMPH NODES: Normal. VASCULAR: Unremarkable. PELVIC VISCERA: Unremarkable. OSSEOUS STRUCTURES: Unremarkable. IMPRESSION: Small nonobstructing stone in the mid left kidney. Kidneys are otherwise normal. Bladder not optimally distended. New 1.3 x 2 cm low-attenuation area in the medial segment of the left lobe of the liver. Further characterization with liver MRI recommended. 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 Assessment & Plan Assessment & Plan (1) Pelvic floor weakness: Code(s): N81.89 - Other female genital prolapse (2) Sensation of pressure in bladder area: Code(s): R39.89 - Other symptoms and signs involving the genitourinary system (3) Urge incontinence of urine: Code(s): N39.41 - Urge incontinence (4) Kidney stone on left side: Code(s): N20.0 - Calculus of kidney Plan Change to increase Myrbetriq 50 mg daily from 25 mg 24-hour urine collection test reviewed. Instructed to increase fluids to 2 liters Follow-up in 4months Renal us prior Orders: Orders US renal BI 3 Months N20.0 - Calculus of kidney AMB Urinalysis Automated Today Z13.9 - Encounter for screening, unspecified Medications: New mirabegron ER (Myrbetriq) 50 mg PO DAILY 90 tabs 3RF Patient Instructions: The patient had an opportunity to ask questions regarding treatment plan. All questions were answered. Imaging, Laboratory studies and physical exam results were discussed and reviewed in detail. No major barriers to understanding were identified. The patient expressed understanding and agreement with the above treatment plan. The patient is aware they should contact our office by phone for worsening of their current condition or the appearance of new symptoms. Compliance is encouraged with any medications and followup testing that is ordered. It is a privilege to be allowed the opportunity to participate in the urologic care of your patient. If you have any questions or concerns regarding treatment for the above conditions please do not hesitate to contact me. The office telephone contact is [phone]. This note is constructed in part using voice recognition software. While every effort has been made to ensure accuracy creative services director errors may have been included. Yours sincerely, Samreen Gil MD Coding Level of Care Code Est Pt Level 4 (97320) Diagnoses Pelvic floor weakness N81.89 Sensation of pressure in bladder area R39.89 Urge incontinence of urine N39.41 Kidney stone on left side N20.0
== END 2023-05-22 09:36 | disposition home or self-care (01) ==
PROVIDERS: PCP Registered Nurse; Visit Provider Urology
DX: N81.89 Other female genital prolapse (principal); R39.89 Other symptoms and signs involving the genitourinary system; N39.41 Urge incontinence; N20.0 Calculus of kidney; Z13.9 Encounter for screening, unspecified
CPT/HCPCS: 99214

== ENCOUNTER → 2023-05-22 08:33 | Outpatient (BNVA) | payer MEDICAID, SELFPAY | PROVIDERS: PCP Registered Nurse; Visit Provider Urology | DX: N81.89 Other female genital prolapse (principal); N39.41 Urge incontinence; N20.0 Calculus of kidney; R39.89 Other symptoms and signs involving the genitourinary system | CPT/HCPCS: 81003; 99212 ==

== ENCOUNTER 2023-05-25 15:31 | Outpatient (REF) | payer MEDICAID, SELFPAY ==
--- NOTE | ~2023-05-25 | MR_ITS ---
EXAMINATION: MR ABDOMEN WITHOUT AND WITH CONTRAST CLINICAL INFORMATION: Liver lesion. COMPARISON: CT abdomen/pelvis 03/09/2023 MRI abdomen 12/24/2018 TECHNIQUE: MR abdomen was performed without and with use of 10 mL intravenous Gadavist gadolinium contrast. Postcontrast images are performed in multiphase dynamic sequences. Imaging was performed in 3 planes. FINDINGS: LUNG BASES: The visualized lung bases are unremarkable. LIVER, GALLBLADDER, AND BILIARY TREE: There is drop in signal of the hepatic parenchyma with opposed phase imaging. The liver is normal in size and contour. There is no corresponding space-occupying lesion in the medial aspect of the left hepatic lobe. There is associated drop in signal intensity on opposed phase images suggesting fat infiltration. The gallbladder is not visualized. PANCREAS: No ductal dilatation. SPLEEN: Not enlarged. ADRENAL GLANDS: No adrenal mass. KIDNEYS AND URETERS: The kidneys are normal in size, shape, and enhance symmetrically. No hydronephrosis. No perinephric stranding. GASTROINTESTINAL TRACT: No bowel obstruction. No ascites or fluid collection. ABDOMINAL WALL: No significant hernia is appreciated. LYMPH NODES: No bulky lymphadenopathy. VASCULAR: Normal caliber abdominal aorta. MR/MR abdomen wo/w con IMPRESSION: Hepatic steatosis most likely contributing to pseudomass seen on recent CT.
[2023-05-25] MEDS: gadobutroL 10 ML VIAL IVPUSH (17:46)
== END 2023-05-25 15:32 | disposition home or self-care (01) ==
LOC: HO.MRI 15:31
PROVIDERS: PCP Registered Nurse; Visit Provider Registered Nurse
DX: K76.9 Liver disease, unspecified (principal)
CPT/HCPCS: 74183; A9585

== ENCOUNTER 2023-06-15 16:01 | Outpatient (REF) | payer MEDICAID, SELFPAY | END 2023-06-15 16:02 | disposition home or self-care (01) | LOC: HO.HHCLNP 16:01 | PROVIDERS: Visit Provider Advanced Practice Midwife | DX: Z11.3 Encounter for screening for infections with a predominantly sexual mode of transmission (principal) | CPT/HCPCS: 0353U ==

== ENCOUNTER 2023-06-28 09:55 | Outpatient (REF) | payer MEDICAID, SELFPAY ==
[2023-06-28 11:26] LABS: MANUAL DIFF FLAG NO
[2023-06-28 11:31] LABS: Basophils Absolute Auto 0.1 X10*3/uL (0.0-0.2); Basophils Percent Auto 0.7 % (0-2); Eosinophils Absolute Auto 0.3 X10*3/uL (0.0-0.4); Hemoglobin 10.5 g/dl (12.0-16.0); Imm Gran Abs Auto 0.03 X10*3/uL (0.00-0.03); Imm Gran Pct Auto 0.3 % (0.0-0.4); Lymphocytes Absolute Auto 2.7 X10*3/uL (1.2-4.9); Lymphocytes Percent Auto 28.8 % (20-40); Mean Corpuscular HGB Conc 30.9 g/dl (31.0-35.0); Mean Platelet Volume 10.9 fL (9.4-12.3); Monocytes Absolute Auto 0.7 X10*3/uL (0.1-1.2); Monocytes Percent Auto 6.9 % (2-11); Neutrophils Absolute Auto 5.6 x10*3/uL (2.0-8.3); Neutrophils Percent Auto 60.3 % (45-73); Platelet Count 448 X10*3/uL (160-400); Red Cell Distribution Width 14.1 % (11.0-16.0); White Blood Count 9.4 X10*3/uL (4.8-10.8)
[2023-06-28 12:00] LABS: Alanine Aminotransferase 13 U/L (0-31); Alkaline Phosphatase 95 U/L (39-117); Anion Gap 9 (12-20); Aspartate Amino Transferase 14 U/L (5-31); Bilirubin Total 0.2 mg/dL (0.0-1.0); Blood Urea Nitrogen 8 mg/dL (9-16); Calcium 9.4 mg/dL (8.4-10.2); Carbon Dioxide 26 mmol/L (22-29); Chloride 107 mmol/L (96-108); Estimated Glomerular Filt Rate > 60; Glucose Random 96 mg/dL (60-115); Iron 31 mcg/dL (30-160); Percent Iron Saturation 9 % (15-50); Potassium 3.6 mmol/L (3.3-5.1); Sodium 138 mmol/L (135-145); Total Iron Binding Capacity 355 mcg/dL (228-428); Total Protein 7.5 g/dL (6.5-8.0); Unsaturated Iron Binding 324 ug/dL
== END 2023-06-28 09:56 | disposition home or self-care (01) ==
LOC: HO.HHCL 09:55
PROVIDERS: Visit Provider Emergency Medicine
DX: R42 Dizziness and giddiness (principal)
CPT/HCPCS: 36415; 80053; 83540; 85025

== ENCOUNTER 2023-09-21 08:44 | Outpatient (AMB) | payer MEDICAID, SELFPAY ==
--- NOTE | 2023-09-21 08:55 | A.OFFVIS_ITS ---
Intake Visit Reasons: 4m/US Intake Note: Patient presents today for a follow-up on on Ultrasound Results. 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 She is followed for LUTS of urinary incontinence, urgency and nephrolithiasis. She doing well on Myrbetriq. She complains of left flank pain. Since last visit 05/22/23, GI was sent a referral due to changes noted in liver on CT, provider ordered an MRI abdomen which I have reviewed. Liver is WNL, Kidneys enhance appropriately. Will continue anticholinergic therapy, CT stone protocol. Review of chart: 05/22/2023? She was last seen by me on 03/13/2023 at which time I reviewed the CT abdomen/pelvis results from 03/09/2023 which revealed small nonobstructing stone in the mid left kidney. Kidneys are otherwise normal. New 1.3 x 2 cm low- attenuation area in the medial segment of the left lobe of the liver.?And The pt was referred to GI. She has been taking Myrbetriq 25 mg. Notes that the urinary incontinence has improved. But feels still voiding frequently every 2 hrs. Discussed 24 hour urine results: Total volume 1.39 mL, Calcium 130 mg; Oxalate 17 mg, Sodium 71, Citrate 602 mg. Instructed on importance of increasein fluid intake. 05/22/2023: Evaluation today?UA? leukocytes: 1+; blood: negative Imaging: Renal US results reviewed--10/17/22--Calcifications noted and it was unclear that if it might have been? stones versus vascular calcification.? CT abdomen/pelvis results from 03/09/2023 revealed small nonobstructing stone in the mid left kidney. Labs: Urine cytology?09/12/22--Negative for malignancy.? 09/21/23: Plan: Cont Myrbetriq, CT stone protocol [facility] Medical History Dysphagia Rectal bleeding Anemia Asthma Surgical History History of sleeve gastrectomy Family History Father No problems noted. Mother No problems noted. Social History Alcohol intake: current Alcohol intake frequency: does not drink Patient Tobacco Use Status: Never used Tobacco Review of Systems Const All systems reviewed & are unremarkable except as noted in HPI and below Reports no additional complaints Eyes Reports no additional complaints ENT Reports no additional complaints Card Reports no additional complaints Resp Reports no additional complaints GI Reports no additional complaints Reports as per HPI Musc Reports no additional complaints Skin/Breast Reports system reviewed and no additional complaints, except as documented Neuro Reports no additional complaints Psych Reports no additional complaints Endo Reports no additional complaints Raul/Lymph Reports no additional complaints Aller/Immun Reports no additional complaints Office Procedures Post Void Residual Post Residual Void Post Void Residual (PVR): 0 60424-Vadj Void Residual by ultrasound Results AMB Urinalysis, Automated UA Leukoctes 0 Shai/uL Last Edit by MIAH Johnson on 09/21/23 09:08 UA Nitrite Negative Last Edit by MIAH Johnson on 09/21/23 09:08 UA Urobilinogen 0.2 mg/dL Last Edit by MIAH Johnson on 09/21/23 09:0 8 UA Protein 15 mg/dL Last Edit by MIAH Johnson on 09/21/23 09:08 UA pH 6.0 Last Edit by MIAH Johnson on 09/21/23 09:08 UA Blood 0 Frank/uL Last Edit by MIAH Johnson on 09/21/23 09:08 UA Specific [place] 1.015 Last Edit by MIAH Johnson on 09/21/23 09: 08 UA Ketone Negative Last Edit by YORDY JohnsonA on 09/21/23 09:08 UA Bilirubin 0 mg/dL Last Edit by MIAH Johnson on 09/21/23 09:08 UA Glucose 0 mg/dL Last Edit by MIAH Johnson on 09/21/23 09:08 Results Reviewed Results Reviewed: Laboratory Last Values Urine pH (Auto) 6.0 09/21/23 09:02 Specific [place] (Auto) 1.015 09/21/23 09:02 Urine Protein (Auto) 15 mg/dL 09/21/23 09:02 Glucose (UA)(Auto) 0 mg/dL 09/21/23 09:02 Urine Ketones (Auto) Negative 09/21/23 09:02 Urine Blood (Auto) 0 Frank/uL 09/21/23 09:02 Urine Nitrite (Auto) Negative 09/21/23 09:02 Urine Bilirubin (Auto) 0 mg/dL 09/21/23 09:02 Urine Urobilinogen (Auto) 0.2 mg/dL 09/21/23 09:02 Leukocyte Esterase (Auto) 0 Shai/uL 09/21/23 09:02 Date of Service: 05/25/23 EXAMINATION: MR ABDOMEN WITHOUT AND WITH CONTRAST CLINICAL INFORMATION: Liver lesion. COMPARISON: CT abdomen/pelvis 03/09/2023 MRI abdomen 12/24/2018 TECHNIQUE: MR abdomen was performed without and with use of 10 mL intravenous Gadavist gadolinium contrast. Postcontrast images are performed in multiphase dynamic sequences. Imaging was performed in 3 planes. FINDINGS: LUNG BASES: The visualized lung bases are unremarkable. LIVER, GALLBLADDER, AND BILIARY TREE: There is drop in signal of the hepatic parenchyma with opposed phase imaging. The liver is normal in size and contour. There is no corresponding space-occupying lesion in the medial aspect of the left hepatic lobe. There is associated drop in signal intensity on opposed phase images suggesting fat infiltration. The gallbladder is not visualized. PANCREAS: No ductal dilatation. SPLEEN: Not enlarged. ADRENAL GLANDS: No adrenal mass. KIDNEYS AND URETERS: The kidneys are normal in size, shape, and enhance symmetrically. No hydronephrosis. No perinephric stranding. GASTROINTESTINAL TRACT: No bowel obstruction. No ascites or fluid collection. ABDOMINAL WALL: No significant hernia is appreciated. LYMPH NODES: No bulky lymphadenopathy. VASCULAR: Normal caliber abdominal aorta. Date of Service: 03/09/23 EXAMINATION: CT ABDOMEN AND PELVIS WITHOUT CONTRAST CLINICAL INFORMATION: Other abnormal findings in urine COMPARISON: Previous renal ultrasound October 2022, and abdominal MRI December 2018 TECHNIQUE: Multidetector volumetric imaging was performed from the superior aspect of the liver through the pubic symphysis. Sagittal and coronal reformatted images were obtained on the technologist's workstation. This CT examination was performed using dose optimization techniques as appropriate, variously including the following: *Automated exposure control *Adjustment of mA and/or kV according to patient size (this includes techniques or standardized protocols for targeted exams where dose is matched to indication/reason for exam; i.e. extremities or head) *Use of iterative reconstruction technique DLP: 687 mGy-cm FINDINGS: LUNG BASES: The visualized lung bases are unremarkable. LIVER, GALLBLADDER, AND BILIARY TREE: The liver is normal in size, and contour. There is a 1.3 x 2 cm low-attenuation area in the medial segment of the left lobe of the liver. This is new from previous exams. No other focal liver lesion. No biliary duct dilatation. The gallbladder has been removed. PANCREAS: Unremarkable. SPLEEN: Unremarkable. ADRENAL GLANDS: Unremarkable. KIDNEYS AND URETERS: The 3 mm nonobstructing stone in the mid left kidney. The kidneys are otherwise normal. BLADDER: Not optimally distended. GASTROINTESTINAL TRACT: The small and large bowel are unremarkable. The appendix is unremarkable. Postsurgical changes from gastric sleeve. ABDOMINAL WALL: No significant hernia is appreciated. LYMPH NODES: Normal. VASCULAR: Unremarkable. PELVIC VISCERA: Unremarkable. OSSEOUS STRUCTURES: Unremarkable. IMPRESSION: Small nonobstructing stone in the mid left kidney. Kidneys are otherwise normal. Bladder not optimally distended. New 1.3 x 2 cm low-attenuation area in the medial segment of the left lobe of the liver. Further characterization with liver MRI recommended. 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 Assessment & Plan Assessment & Plan (1) Kidney stone on left side: Code(s): N20.0 - Calculus of kidney Category: Medical (2) OAB (overactive bladder): Code(s): N32.81 - Overactive bladder Category: Medical (3) Left flank pain: Code(s): R10.9 - Unspecified abdominal pain Category: Medical Plan Cont Myrbetriq, CT stone protocol Orders: Orders AMB Urinalysis Automated 09/21/23 Z13.9 - Encounter for screening, unspecified AMB Post Void Residual by ultrasound 09/21/23 N39.8 - Other specified disorders of urinary system CT abdomen pelvis wo IV con 09/21/23 N20.0 - Calculus of kidney Medications: Refilled mirabegron ER (Myrbetriq) 50 mg PO DAILY 90 tabs 3RF Coding Level of Care Code Est Pt Level 4 (26637) Diagnoses Kidney stone on left side N20.0 OAB (overactive bladder) N32.81 Left flank pain R10.9 CPT Codes Post Residual Void - PVR CPT Code: 34162-Czqs Void Residual by ultrasound ([id number])
== END 2023-09-21 09:39 | disposition home or self-care (01) ==
PROVIDERS: PCP Registered Nurse; Referring Provider Registered Nurse; Visit Provider Urology
DX: N20.0 Calculus of kidney (principal); N32.81 Overactive bladder; R10.9 Unspecified abdominal pain
CPT/HCPCS: 99214

== ENCOUNTER → 2023-09-21 08:44 | Outpatient (BNVA) | payer MEDICAID, SELFPAY | PROVIDERS: PCP Registered Nurse; Visit Provider Urology | DX: N20.0 Calculus of kidney (principal); R32 Unspecified urinary incontinence; Z79.899 Other long term (current) drug therapy | CPT/HCPCS: 51798; 81003; 99212 ==

== ENCOUNTER 2023-11-14 14:37 | Outpatient (REF) | payer MEDICAID, SELFPAY ==
--- NOTE | ~2023-11-14 | CT_ITS ---
EXAMINATION: CT ABDOMEN AND PELVIS WITHOUT CONTRAST CLINICAL INFORMATION: Renal calculus. COMPARISON: MR abdomen 05/25/2023, CT abdomen and pelvis 03/09/2023. TECHNIQUE: Multidetector volumetric imaging was performed from the superior aspect of the liver through the pubic symphysis. Sagittal and coronal reformatted images were obtained on the technologist's workstation. This CT examination was performed using dose optimization techniques as appropriate, variously including the following: *Automated exposure control *Adjustment of mA and/or kV according to patient size (this includes techniques or standardized protocols for targeted exams where dose is matched to indication/reason for exam; i.e. extremities or head) *Use of iterative reconstruction technique DLP: 612 mGy-cm FINDINGS: LUNG BASES: The visualized lung bases are unremarkable. LIVER, GALLBLADDER, AND BILIARY TREE: The liver is enlarged measuring 21 cm in length. Attenuation is normal. No focal hepatic lesion or biliary ductal dilatation is present. Status post cholecystectomy. PANCREAS: Unremarkable. SPLEEN: Unremarkable. ADRENAL GLANDS: Unremarkable. KIDNEYS AND URETERS: The kidneys are normal in size, shape, and attenuation. There is a 3.5 mm nonobstructing stone in the mid left kidney. The stone measures a mean of 450 Hounsfield units with a maximum of 1039 Hounsfield units. The stone is 8.4 cm from the posterior axillary line. No other calculi seen. No hydronephrosis, hydroureter, or calculi seen. No perinephric stranding. BLADDER: Unremarkable. GASTROINTESTINAL TRACT: Status post gastric sleeve. The small and large bowel are unremarkable. The appendix is unremarkable. ABDOMINAL WALL: No significant hernia is appreciated. Mild diastasis of the rectus muscles. LYMPH NODES: Normal. VASCULAR: Unremarkable. PELVIC VISCERA: The uterus and adnexa are unremarkable. OSSEOUS STRUCTURES: Unremarkable. CT/CT abdomen pelvis wo IV con IMPRESSION: 1. 3.5 mm nonobstructing left renal calculus. 2. Incidental note made of enlarged liver, cholecystectomy and gastric sleeve. Fleischner guidelines were followed.
== END 2023-11-14 14:38 | disposition home or self-care (01) ==
LOC: HO.CT 14:37
PROVIDERS: PCP Registered Nurse; Visit Provider Urology
DX: N20.0 Calculus of kidney (principal)
CPT/HCPCS: 74176

== ENCOUNTER 2023-11-25 08:24 | Emergency (ER) | payer MEDICAID, SELFPAY ==
[2023-11-25 08:25] VITALS: BP 124/78; PULSE 99; RESP 16; TEMP 36.8; O2SAT 99; BMI 38.1
--- NOTE | 2023-11-25 08:39 | ED.GENADULT ---
HPI - General Adult General Chief complaint: General Medical Stated complaint: sore throat Time Seen by Provider: 11/25/23 08:36 Source: patient Mode of arrival: ambulatory Limitations: no limitations History of Present Illness ED Provider: Aliyah Vogt PA-C HPI narrative: Patient is a 38 year old assigned female at with a history of OAB presenting to the emergency department today with a sore throat. Patient states that over the last 3 days she has had a sore throat and painful swallowing. Patient denies any dizziness, lightheadedness, abdominal pain, nausea, vomiting, fever, chills, blurry vision, double vision, loss of vision, chest pain, difficulty breathing, shortness of breath, back pain, night sweats, pain with urination, increased urinary frequency, increased urinary urgency, blood in her urine or stool, syncope or a near syncopal episode, recent trauma or falls, bowel incontinence, bladder incontinence, or any other complaints at this time. Onset (ago): day(s) (3) Severity: mild Severity scale (1-10): 3 Relieving factors: none Exacerbating factors: none Associated symptoms: denies other symptoms Treatments prior to arrival: none Related Data Home Medications ?Medication ?Instructions ?Recorded ?Confirmed albuterol sulfate 90 mcg/actuation 0 mcg inhalation 08/23/22 09/21/23 aerosol inhaler (Ventolin HFA) sodium chloride 0.65 % nasal spray 2 spray intranasal congestion 08/23/22 09/21/23 aerosol (Deep Sea Nasal) fluticasone propionate 50 1 spray intranasal DAILY 11/18/22 09/21/23 mcg/actuation nasal spray,suspension loratadine 10 mg tablet 10 mg PO QAM 11/18/22 09/21/23 Previous Rx's ?Medication ?Instructions ?Recorded mirabegron 50 mg tablet,extended 50 mg PO DAILY #90 tabs 09/21/23 release 24 hr (Myrbetriq) penicillin V potassium 500 mg 500 mg PO BID 10 days #20 tabs 11/25/23 tablet Allergies Allergy/AdvReac Type Severity Reaction Status Date / Time Seasonal Allergies Allergy Watery Eye Verified 11/25/23 08:29 Review of Systems Constitutional: Constitutional: Reports no additional constitutional complaints, Denies chills, Denies fever(s) and Denies night sweats Eyes: Eyes: Reports no additional eye complaints, Denies blurry vision, Denies change in vision, Denies diplopia, Denies eye discharge, Denies loss of vision and Denies eye pain ENT: Denies dizziness and Reports sore throat Cardiovascular: Cardiovascular: Reports no additional cardiovascular complaints, Denies chest pain, Denies lightheadedness, Denies Loss of Consciousness and Denies dyspnea Respiratory: Respiratory: Reports no additional respiratory complaints and Denies dyspnea Gastrointestinal: Gastrointestinal: Reports no additional gastrointestinal complaints, Denies abdominal pain, Denies melena, Denies hematochezia, Denies change in bowel habits and Denies change in stool character Genitourinary: Genitourinary: Denies hematuria, Denies urinary frequency, Denies dysuria, Denies urinary incontinence, Denies urinary hesitancy and Denies urinary urgency Musculoskeletal: Musculoskeletal: Reports no additional musculoskeletal complaints, Denies numbness and Denies tingling Neurologic: Denies dizziness, Denies loss of vision, Denies numbness and Denies tingling Psychiatric: Psychiatric: Reports no additional psychiatric complaints Endocrine: Endocrine: Reports no additional endocrine complaints Hematologic/Lymphatic: Hematologic/Lymphatic: Reports no additional hematologic/lymphatic complaints Allergic/Immunologic: Allergic/Immunologic: Reports no additional allergic/immunologic complaints PMFSH Past Medical History Attestation statement: The following information was validated with the patient. Source: old records reviewed and nursing notes reviewed Medical History Dysphagia Rectal bleeding Anemia Asthma Surgical History History of sleeve gastrectomy Family History Family History Father No problems noted. Mother No problems noted. Social History Social History Alcohol intake: current Alcohol intake frequency: does not drink Patient Tobacco Use Status: Never used Tobacco Advance Directives: No Advance Directives Information Provided: Yes Physical Exam ED Vital Signs: Vital Signs - 24 hr 11/25/23 08:25 Temperature 98.2 F Pulse Rate 99 Respiratory Rate 16 Blood Pressure 124/78 Pulse Oximetry 99 Oxygen Delivery Method Room Air BMI result Body Mass Index 38.1 Const General: cooperative, no acute distress, alert and awake Nutritional Appearance: well nourished Orientation/consciousness: patient oriented x3 Limitations: no limitations HENMT Head: Yes normal to inspection and Yes atraumatic Ears: hearing grossly normal bilaterally and external ears normal General nose exam: Normal external nose present, no nasal discharge noted and no epistaxis Face and sinus: Yes normal facial exam, No abrasion and No laceration Mouth: Normal oral and palatal mucosa present, no drooling and no muffled voice Throat: Yes abnormal tonsil (bilateral erythema) Eyes General: appearance normal, both eyes and all related structures Periorbital: periorbital findings normal Eyelids: Yes eyelids normal Conjunctivae: conjunctivae normal Pupils: Equal, round and reactive pupils present EOM: EOMs intact bilaterally Neck Neck: Yes normal visual inspection, Yes full ROM and Yes no lymphadenopathy Chest Chest palpation & inspection: normal inspection of the chest Resp Effort & Inspection: normal respiratory effort and able to speak in complete sentences GI Inspection: Yes normal to inspection Neuro General: patient oriented x3 and moves all extremities Cranial nerves: Yes Equal, round and reactive pupils present Cognition (Neuro): normal cognition Motor exam (neuro): 5/5 motor strength present throughout Sensory Exam: Normal double simultaneous stimulation for sensation Coordination: [id number] test normal Extrem General: Yes normal to inspection, Yes full ROM and Yes capillary refill normal Psych Appearance: grossly normal Mental Status: mental status grossly normal Affect: normal affect Attitude: cooperative Thought process: Normal thought process present Thought content: Normal thought content present Insight: Good insight present (Psych) Medications Administered Discontinued Medications Generic Name Dose Route Start Last Admin Trade Name Freq PRN Reason Stop Dose Admin Dexamethasone Sodium Phosphate 10 mg 11/25/23 09:47 11/25/23 10:08 Dexamethasone Sod Phosphate 10 Mg/Ml Vial PO 11/25/23 09:48 10 mg ONCE ONE Administration Medical Decision Making Medical Decision Making [facility] Narrative: Patient is a 38 year old assigned female at with a history of OAB presenting to the emergency department today with a sore throat. Patient's physical exam was as noted in the physical exam portion of this note. Patient's COVID-19, influenza, RSV, and strep tests were all negative. Given the patient's clinical presentation, will treat pharyngitis. I explained my physical exam findings as well as all test results to the patient. I answered all questions asked by the patient. Patient received decadron which upon re-evaluation she stated helped her symptoms significantly. I stressed the importance of the patient taking her medication as prescribed. I stressed the importance of the patient following up with her primary care provider. I stressed the importance of the patient returning to the emergency department immediately if her symptoms were to worsen or if she were to develop any dizziness, shortness of breath, difficulty breathing, chest pain, blurry vision, loss of vision, nausea, vomiting, abdominal pain, fever, chills, back pain, or any other complaints. Patient verbalized agreement and understanding with this treatment plan and discharge. Differential Diagnosis Differential Diagnoses: The differential diagnosis associated with the presentation includes Pharyngitis Strep pharyngitis COVID-19 Influenza RSV Admission/Observation Consideration of admission/observation: Escalation of care including admission/observation considered Patient would have been admitted to the hospital had her work up had any findings where hospital admission was appropriate and her clinical presentation warranted hospital admission. Lab Data [facility] Lab Attestation statement: I reviewed the patient's lab results. My interpretation of these results are in the [facility] Rationale portion of this note. Labs: Lab Results 11/25/23 11/25/23 Range/Units 08:31 08:55 Influenza Type A (PCR) NEGATIVE (Negative) Influenza Type B (PCR) NEGATIVE (Negative) RSV RNA Qual (PCR) NEGATIVE (Negative) SARS-CoV-2 RNA (RT-PCR) NEGATIVE (Negative) S. pyogenes GrpA AGATHA Negative (Negative) Prescription Management I considered prescription management with: Antibiotic (given patient's clinical presentation - will treat pharyngitis with antibiotic) Discharge Plan Discharge Clinical Impression: Pharyngitis Patient Disposition: Home, Self-Care Instructions: Pharyngitis (ED) Additional Instructions: Follow up with your primary care provider. Return to the emergency department immediately if your symptoms worsen or if you develop any dizziness, shortness of breath, difficulty breathing, chest pain, blurry vision, loss of vision, nausea, vomiting, abdominal pain, fever, chills, back pain, or any other complaints. Prescriptions: New penicillin V potassium 500 mg tablet 500 mg PO BID 10 Days Qty: 20 0RF No Action Deep Sea Nasal 0.65 % aerosol,spray 2 spray intranasal albuterol sulfate [Ventolin HFA] 90 mcg/actuation HFA aerosol inhaler 0 mcg inhalation loratadine 10 mg tablet 10 mg PO QAM fluticasone propionate 50 mcg/actuation spray,suspension 1 spray intranasal DAILY Myrbetriq 50 mg tablet extended release 24 hr 50 mg PO DAILY Qty: 90 3RF Referrals: Kayleen Malcolm FNP [Primary Care Provider] - Stand Alone Forms: Work/School Release Interventions: ED Discharge Assessment Last Done: 11/25/23 10:08 Discharge Date/Time: 11/25/23 10:09 Print Language: Faroese
[2023-11-25 08:44] LABS: IDNOW Serial# 58CA691E; Strep A Nucleic Acid Negative (Negative)
[2023-11-25 09:42] LABS: Influenza A PCR NEGATIVE (Negative); Influenza B PCR NEGATIVE (Negative); Resp Syncy Virus RNA Qual PCR NEGATIVE (Negative); SARS COV2 PCR INHOUSE NEGATIVE (Negative)
[2023-11-25 10:08] VITALS: BP 124/78; PULSE 99; RESP 16; TEMP 36.8; O2SAT 99
[2023-11-25] MEDS: dexAMETHasone sod phosphate 10 MG/ML VIAL PO (10:08)
== END 2023-11-25 10:09 | disposition home or self-care (01) ==
PROVIDERS: Physician Assistant Medical; Emergency Provider Emergency Medicine Emergency Medical Services; PCP Registered Nurse
DX: J02.9 Acute pharyngitis, unspecified (principal); J45.909 Unspecified asthma, uncomplicated; Z03.818 Encounter for observation for suspected exposure to other biological agents ruled out; Z79.899 Other long term (current) drug therapy
CPT/HCPCS: 0241U; 87651; 99282; 99283; J1100

== ENCOUNTER 2023-11-27 15:27 | Outpatient (AMB) | payer MEDICAID, SELFPAY ==
--- NOTE | 2023-11-27 15:31 | A.OFFVIS_ITS ---
Intake Visit Reasons: 6w/CT Intake Note: Patient presents today for a follow-up on on CT Results. Meds- Myrbetriq Allergies to Antibiotic- No Known Allergies Blood Thinner- None Chef Manager Required: No Accompanied by: Self / Same As Patient Allergies Seasonal Allergies Allergy (Verified 11/27/23 15:31) Watery Eye Medication List - Last Reconciled 11/28/23 by Samreen Gil MD albuterol sulfate 90 mcg/actuation (Ventolin HFA) 0 mcg inhalation fluticasone propionate 50 mcg/actuation 1 spray intranasal DAILY loratadine 10 mg PO QAM mirabegron ER (Myrbetriq) 50 mg PO DAILY penicillin V potassium 500 mg PO BID 10 days sodium chloride 0.65% (Deep Sea Nasal) 2 sprays intranasal HPI Comments Details: 11/27/23--Yoselyn is followed for LUTS of urinary incontinence, urgency and nephrolithiasis. She doing well on Myrbetriq. She was last seen on 09/21/23 with complaints of left flank pain. She was sent for reevaluation of kidneys, I discussed CTAP - 11/14/23--no hydro, stone essentially unchanged, 3.5 mm. She also complains of numbness down left lower extremity. I discussed that the left sided pain may be musculoskeletal related. left renal stone is small, will cont to monitor. Review of chart: 09/21/23--Yoselyn is a 37-year-old female who presents today to the office for a follow-up. She is followed for LUTS of urinary incontinence, urgency and nephrolithiasis. She doing well on Myrbetriq. She complains of left flank pain. Since last visit 05/22/23, GI was sent a referral due to changes noted in liver on CT, provider ordered an MRI abdomen which I have reviewed. Liver is WNL, Kidneys enhance appropriately. Will continue anticholinergic therapy, CT stone protocol. 05/22/2023? She was last seen by me on 03/13/2023 at which time I reviewed the CT abdomen/pelvis results from 03/09/2023 which revealed small nonobstructing stone in the mid left kidney. Kidneys are otherwise normal. New 1.3 x 2 cm low- atten uation area in the medial segment of the left lobe of the liver.?And The pt was referred to GI. She has been taking Myrbetriq 25 mg. Notes that the urinary incontinence has improved. But feels still voiding frequently every 2 hrs. Discussed 24 hour urine results: Total volume 1.39 mL, Calcium 130 mg; Oxalate 17 mg, Sodium 71, Citrate 602 mg. Instructed on importance of increasein fluid intake. 05/22/2023: Evaluation today?UA? leukocytes: 1+; blood: negative Imaging: Renal US results reviewed--10/17/22--Calcifications noted and it was unclear that if it might have been? stones versus vascular calcification.? CT abdomen/pelvis results from 03/09/2023 revealed small nonobstructing stone in the mid left kidney. Labs: Urine cytology?09/12/22--Negative for malignancy.? PFSH Medical History Dysphagia Rectal bleeding Anemia Asthma Surgical History History of sleeve gastrectomy Family History Father No problems noted. Mother No problems noted. Social History Alcohol intake: current Alcohol intake frequency: does not drink Patient Tobacco Use Status: Never used Tobacco Review of Systems Const All systems reviewed & are unremarkable except as noted in HPI and below Reports no additional complaints Eyes Reports no additional complaints ENT Reports no additional complaints Card Reports no additional complaints Resp Reports no additional complaints GI Reports no additional complaints Reports as per HPI Musc Reports no additional complaints Skin/Breast Reports system reviewed and no additional complaints, except as documented Neuro Reports no additional complaints Psych Reports no additional complaints Endo Reports no additional complaints Raul/Lymph Reports no additional complaints Aller/Immun Reports no additional complaints Results AMB Urinalysis, Automated UA Leukoctes 0 Shai/uL Last Edit by Alfredo Jean A on 11/27/23 15:43 UA Nitrite Negative Last Edit by Alfredo Jean A on 11/27/23 15:43 UA Urobilinogen 0.2 mg/dL Last Edit by Alfredo Jean A on 11/27/23 15:4 3 UA Protein 0 mg/dL Last Edit by Alfredo Jean A on 11/27/23 15:43 UA pH 6.0 Last Edit by Alfredo Jean, A on 11/27/23 15:43 UA Blood 0 Frank/uL Last Edit by Alfredo Jean A on 11/27/23 15:43 UA Specific [place] 1.015 Last Edit by Alfredo Jean A on 11/27/23 15: 43 UA Ketone Negative Last Edit by Alfredo Jean A on 11/27/23 15:43 UA Bilirubin 0 mg/dL Last Edit by Alfredo Jean [facility] on 11/27/23 15:43 UA Glucose 0 mg/dL Last Edit by Alfredo Jean A on 11/27/23 15:43 Results Reviewed Results Reviewed: Laboratory Last Values Urine pH (Auto) 6.0 11/27/23 15:42 Specific [place] (Auto) 1.015 11/27/23 15:42 Urine Protein (Auto) 0 mg/dL 11/27/23 15:42 Glucose (UA)(Auto) 0 mg/dL 11/27/23 15:42 Urine Ketones (Auto) Negative 11/27/23 15:42 Urine Blood (Auto) 0 Frank/uL 11/27/23 15:42 Urine Nitrite (Auto) Negative 11/27/23 15:42 Urine Bilirubin (Auto) 0 mg/dL 11/27/23 15:42 Urine Urobilinogen (Auto) 0.2 mg/dL 11/27/23 15:42 Leukocyte Esterase (Auto) 0 Shai/uL 11/27/23 15:42 Date of Service: 11/14/23 EXAMINATION: CT ABDOMEN AND PELVIS WITHOUT CONTRAST CLINICAL INFORMATION: Renal calculus. COMPARISON: MR abdomen 05/25/2023, CT abdomen and pelvis 03/09/2023. DLP: 612 mGy-cm FINDINGS: LUNG BASES: The visualized lung bases are unremarkable. LIVER, GALLBLADDER, AND BILIARY TREE: The liver is enlarged measuring 21 cm in length. Attenuation is normal. No focal hepatic lesion or biliary ductal dilatation is present. Status post cholecystectomy. PANCREAS: Unremarkable. SPLEEN: Unremarkable. ADRENAL GLANDS: Unremarkable. KIDNEYS AND URETERS: The kidneys are normal in size, shape, and attenuation. There is a 3.5 mm nonobstructing stone in the mid left kidney. The stone measures a mean of 450 Hounsfield units with a maximum of 1039 Hounsfield units. The stone is 8.4 cm from the posterior axillary line. No other calculi seen. No hydronephrosis, hydroureter, or calculi seen. No perinephric stranding. BLADDER: Unremarkable. GASTROINTESTINAL TRACT: Status post gastric sleeve. The small and large bowel are unremarkable. The appendix is unremarkable. ABDOMINAL WALL: No significant hernia is appreciated. Mild diastasis of the rectus muscles. LYMPH NODES: Normal. VASCULAR: Unremarkable. PELVIC VISCERA: The uterus and adnexa are unremarkable. OSSEOUS STRUCTURES: Unremarkable. IMPRESSION: 1. 3.5 mm nonobstructing left renal calculus. 2. Incidental note made of enlarged liver, cholecystectomy and gastric sleeve. Date of Service: 05/25/23 EXAMINATION: MR ABDOMEN WITHOUT AND WITH CONTRAST CLINICAL INFORMATION: Liver lesion. COMPARISON: CT abdomen/pelvis 03/09/2023 MRI abdomen 12/24/2018 TECHNIQUE: MR abdomen was performed without and with use of 10 mL intravenous Gadavist gadolinium contrast. Postcontrast images are performed in multiphase dynamic sequences. Imaging was performed in 3 planes. FINDINGS: LUNG BASES: The visualized lung bases are unremarkable. LIVER, GALLBLADDER, AND BILIARY TREE: There is drop in signal of the hepatic parenchyma with opposed phase imaging. The liver is normal in size and contour. There is no corresponding space-occupying lesion in the medial aspect of the left hepatic lobe. There is associated drop in signal intensity on opposed phase images suggesting fat infiltration. The gallbladder is not visualized. PANCREAS: No ductal dilatation. SPLEEN: Not enlarged. ADRENAL GLANDS: No adrenal mass. KIDNEYS AND URETERS: The kidneys are normal in size, shape, and enhance symmetrically. No hydronephrosis. No perinephric stranding. GASTROINTESTINAL TRACT: No bowel obstruction. No ascites or fluid collection. ABDOMINAL WALL: No significant hernia is appreciated. LYMPH NODES: No bulky lymphadenopathy. VASCULAR: Normal caliber abdominal aorta. Date of Service: 03/09/23 EXAMINATION: CT ABDOMEN AND PELVIS WITHOUT CONTRAST CLINICAL INFORMATION: Other abnormal findings in urine COMPARISON: Previous renal ultrasound October 2022, and abdominal MRI December 2018 TECHNIQUE: Multidetector volumetric imaging was performed from the superior aspect of the liver through the pubic symphysis. Sagittal and coronal reformatted images were obtained on the technologist's workstation. This CT examination was performed using dose optimization techniques as appropriate, variously including the following: *Automated exposure control *Adjustment of mA and/or kV according to patient size (this includes techniques or standardized protocols for targeted exams where dose is matched to indication/reason for exam; i.e. extremities or head) *Use of iterative reconstruction technique DLP: 687 mGy-cm FINDINGS: LUNG BASES: The visualized lung bases are unremarkable. LIVER, GALLBLADDER, AND BILIARY TREE: The liver is normal in size, and contour. There is a 1.3 x 2 cm low-attenuation area in the medial segment of the left lobe of the liver. This is new from previous exams. No other focal liver lesion. No biliary duct dilatation. The gallbladder has been removed. PANCREAS: Unremarkable. SPLEEN: Unremarkable. ADRENAL GLANDS: Unremarkable. KIDNEYS AND URETERS: The 3 mm nonobstructing stone in the mid left kidney. The kidneys are otherwise normal. BLADDER: Not optimally distended. GASTROINTESTINAL TRACT: The small and large bowel are unremarkable. The appendix is unremarkable. Postsurgical changes from gastric sleeve. ABDOMINAL WALL: No significant hernia is appreciated. LYMPH NODES: Normal. VASCULAR: Unremarkable. PELVIC VISCERA: Unremarkable. OSSEOUS STRUCTURES: Unremarkable. IMPRESSION: Small nonobstructing stone in the mid left kidney. Kidneys are otherwise normal. Bladder not optimally distended. New 1.3 x 2 cm low-attenuation area in the medial segment of the left lobe of the liver. Further characterization with liver MRI recommended. 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 Assessment & Plan Assessment & Plan (1) Kidney stone on left side: Code(s): N20.0 - Calculus of kidney Category: Medical (2) OAB (overactive bladder): Code(s): N32.81 - Overactive bladder Category: Medical (3) Left flank pain: Code(s): R10.9 - Unspecified abdominal pain Category: Medical Plan Cont Myrbetriq fu one year renal US prior Orders: Orders AMB Urinalysis Automated 11/27/23 Z13.9 - Encounter for screening, unspecified US renal BI 11 Months N20.0 - Calculus of kidney Patient Instructions: The patient had an opportunity to ask questions regarding treatment plan. The patient expressed understanding and agreement with the above treatment plan. The patient is aware they should contact our office by phone for worsening of their current condition or the appearance of new symptoms. Compliance is encouraged with any medications and followup testing that is ordered. It is a privilege to be allowed the opportunity to participate in the urologic care of your patient. If you have any questions or concerns regarding treatment for the above conditions please do not hesitate to contact me. The office telephone contact is [phone]. This note is constructed in part using voice recognition software. While every effort has been made to ensure accuracy peoplesoft developer errors may have been included. Yours sincerely, Samreen Gil MD Coding Level of Care Code Est Pt Level 3 (20089) Diagnoses Kidney stone on left side N20.0 OAB (overactive bladder) N32.81 Left flank pain R10.9
== END 2023-11-27 16:02 | disposition home or self-care (01) ==
PROVIDERS: PCP Registered Nurse; Visit Provider Urology
DX: N20.0 Calculus of kidney (principal); N32.81 Overactive bladder; R10.9 Unspecified abdominal pain
CPT/HCPCS: 99213

== ENCOUNTER → 2023-11-27 15:27 | Outpatient (BNVA) | payer MEDICAID, SELFPAY | PROVIDERS: PCP Registered Nurse; Visit Provider Urology | DX: N20.0 Calculus of kidney (principal); N32.81 Overactive bladder; R10.9 Unspecified abdominal pain | CPT/HCPCS: 81003; 99212 ==

== ENCOUNTER 2023-12-18 10:48 | Outpatient (REF) | payer MEDICAID, SELFPAY ==
[2023-12-18 13:50] LABS: MANUAL DIFF FLAG NO
[2023-12-18 14:08] LABS: Basophils Absolute Auto 0.1 X10*3/uL (0.0-0.2); Basophils Percent Auto 0.7 % (0-2); Eosinophils Absolute Auto 0.2 X10*3/uL (0.0-0.4); Eosinophils Percent Auto 2.5 % (0-4); Hematocrit 38.6 % (37.0-47.0); Hemoglobin 12.6 g/dl (12.0-16.0); Imm Gran Abs Auto 0.01 X10*3/uL (0.00-0.03); Imm Gran Pct Auto 0.1 % (0.0-0.4); Lymphocytes Absolute Auto 2.8 X10*3/uL (1.2-4.9); Lymphocytes Percent Auto 33.2 % (20-40); Mean Corpuscular HGB Conc 32.6 g/dl (31.0-35.0); Mean Corpuscular Hemoglobin 28.2 pg (27.0-33.0); Mean Corpuscular Volume 86.4 fL (80.0-98.0); Monocytes Absolute Auto 0.6 X10*3/uL (0.1-1.2); Monocytes Percent Auto 6.6 % (2-11); Neutrophils Absolute Auto 4.9 x10*3/uL (2.0-8.3); Neutrophils Percent Auto 56.9 % (45-73); Platelet Count 389 X10*3/uL (160-400); Red Blood Count 4.47 X10*6/uL (4.20-5.50); Red Cell Distribution Width 14.1 % (11.0-16.0); White Blood Count 8.5 X10*3/uL (4.8-10.8)
[2023-12-18 15:21] LABS: Alanine Aminotransferase 15 U/L (0-31); Albumin Level 4.1 g/dL (3.5-5.0); Alkaline Phosphatase 90 U/L (39-117); Anion Gap 10 (12-20); Aspartate Amino Transferase 17 U/L (5-31); Bilirubin Total 0.4 mg/dL (0.0-1.0); Blood Urea Nitrogen 7 mg/dL (9-16); Calcium 9.8 mg/dL (8.4-10.2); Carbon Dioxide 25 mmol/L (22-29); Chloride 108 mmol/L (96-108); Estimated Glomerular Filt Rate > 60; Ferritin 19 ng/mL (10-122); Glucose Random 87 mg/dL (60-115); Potassium 4.1 mmol/L (3.3-5.1); Sodium 139 mmol/L (135-145); Total Protein 7.6 g/dL (6.5-8.0)
[2023-12-19 08:40] LABS: HBS Num1 11.21 mIU/mL (0-7.99); HBc Num1 0.13 S/CO (0.00-0.79); HBsAGNum1 0.32 S/CO (0.00-0.99); Hepatitis A Antibody IgM 0.16 Index (0-0.79); Hepatitis B Core Antibody Nonreactive (Nonreactive); Hepatitis B Surface Antigen Negative (Negative); ~HepC Num1 0.12 S/CO (0.00-0.79); ~Hepatitis A Antibody IgM Nonreactive (Nonreactive); ~Hepatitis C Antibody Nonreactive (Nonreactive)
[2023-12-19 10:52] LABS: HBS Num2 11.82 mIU/mL (0-7.99)
[2023-12-19 10:53] LABS: ~Hepatitis B Surface Antibody GRAYZONE (Nonreactive)
== END 2023-12-18 10:49 | disposition home or self-care (01) ==
LOC: HO.HHCL 10:48
PROVIDERS: Visit Provider Registered Nurse
DX: K76.9 Liver disease, unspecified (principal); D50.0 Iron deficiency anemia secondary to blood loss (chronic)
CPT/HCPCS: 36415; 80053; 82728; 85025; 86704; 86706; 86709; 86803; 87340

== ENCOUNTER 2024-01-10 16:09 | Outpatient (REF) | payer MEDICAID, SELFPAY ==
[2024-01-10 17:54] LABS: MANUAL DIFF FLAG NO
[2024-01-10 17:58] LABS: Basophils Absolute Auto 0.1 X10*3/uL (0.0-0.2); Basophils Percent Auto 0.9 % (0-2); Eosinophils Absolute Auto 0.1 X10*3/uL (0.0-0.4); Eosinophils Percent Auto 1.2 % (0-4); Hematocrit 34.7 % (37.0-47.0); Hemoglobin 11.6 g/dl (12.0-16.0); Imm Gran Abs Auto 0.02 X10*3/uL (0.00-0.03); Imm Gran Pct Auto 0.2 % (0.0-0.4); Lymphocytes Absolute Auto 2.6 X10*3/uL (1.2-4.9); Lymphocytes Percent Auto 29.5 % (20-40); Mean Corpuscular HGB Conc 33.4 g/dl (31.0-35.0); Mean Corpuscular Hemoglobin 28.6 pg (27.0-33.0); Mean Corpuscular Volume 85.5 fL (80.0-98.0); Mean Platelet Volume 10.8 fL (9.4-12.3); Monocytes Absolute Auto 0.5 X10*3/uL (0.1-1.2); Neutrophils Absolute Auto 5.5 x10*3/uL (2.0-8.3); Neutrophils Percent Auto 62.2 % (45-73); Platelet Count 401 X10*3/uL (160-400); Red Blood Count 4.06 X10*6/uL (4.20-5.50); Red Cell Distribution Width 13.5 % (11.0-16.0); White Blood Count 8.8 X10*3/uL (4.8-10.8)
== END 2024-01-10 16:10 | disposition home or self-care (01) ==
LOC: HO.HHCL 16:09
PROVIDERS: Visit Provider Emergency Medicine
DX: N93.9 Abnormal uterine and vaginal bleeding, unspecified (principal)
CPT/HCPCS: 36415; 85025

== ENCOUNTER 2024-02-09 09:33 | Outpatient (REF) | payer MEDICAID, SELFPAY ==
--- NOTE | ~2024-02-09 | MR_ITS ---
EXAMINATION: MR ABDOMEN WITHOUT AND WITH CONTRAST CLINICAL INFORMATION: Left hepatic lobe liver lesion COMPARISON: CT abdomen 11/14/2023, MR abdomen 05/25/2023 TECHNIQUE: MRI of the abdomen before and after the IV administration of 10 mL of Gadavist was obtained using routine sequences. FINDINGS: LUNG BASES: The visualized lung bases are unremarkable. KIDNEYS AND URETERS: Bosniak 1 left renal cyst, no imaging follow-up recommended. GALLBLADDER: Status post cholecystectomy. LIVER AND BILIARY TREE: Again seen is focal fat along the falciform ligament, slightly less conspicuous than on prior. Liver is enlarged measuring 20.2 cm in span, previously 20.4 cm. No suspicious liver lesion however the dome of the liver was excluded from the [id number] on the dynamic postcontrast sequences limiting assessment. No intra or extrahepatic biliary duct dilatation. PANCREAS: Unremarkable SPLEEN: Incidentally noted accessory splenule. ADRENAL GLANDS: Unremarkable GASTROINTESTINAL TRACT: Small hiatal hernia. Small hiatal hernia. LYMPH NODES: No lymphadenopathy. VASCULAR: Unremarkable ABDOMINAL WALL: Tiny fat-containing periumbilical hernia. OSSEOUS STRUCTURES: Unremarkable. MR/MR abdomen wo/w con IMPRESSION: 1. Liver is enlarged measuring 20.2 cm in span similar to prior with slightly decreased conspicuity of focal fat along the falciform ligament. No suspicious liver lesion however the dome of the liver was excluded from the [id number] on the dynamic postcontrast sequences limiting assessment. Electronically signed by: Lala Gunderson MD 02/29/2024 01:25 PM EDT
[2024-02-09] MEDS: gadobutroL 10 ML VIAL IVPUSH (10:47)
== END 2024-02-09 09:34 | disposition home or self-care (01) ==
LOC: HO.MRI 09:33
PROVIDERS: PCP Registered Nurse; Visit Provider Registered Nurse
DX: K76.9 Liver disease, unspecified (principal)
CPT/HCPCS: 74183; A9585

== ENCOUNTER 2024-02-16 12:02 | Outpatient (REF) | payer MEDICAID, SELFPAY ==
[2024-02-16 13:36] LABS: MANUAL DIFF FLAG NO
[2024-02-16 13:43] LABS: Basophils Absolute Auto 0.1 X10*3/uL (0.0-0.2); Basophils Percent Auto 0.7 % (0-2); Eosinophils Absolute Auto 0.1 X10*3/uL (0.0-0.4); Eosinophils Percent Auto 1.5 % (0-4); Hematocrit 32.9 % (37.0-47.0); Hemoglobin 10.5 g/dl (12.0-16.0); Imm Gran Abs Auto 0.03 X10*3/uL (0.00-0.03); Imm Gran Pct Auto 0.4 % (0.0-0.4); Lymphocytes Absolute Auto 2.3 X10*3/uL (1.2-4.9); Lymphocytes Percent Auto 28.7 % (20-40); Mean Corpuscular HGB Conc 31.9 g/dl (31.0-35.0); Mean Corpuscular Hemoglobin 26.5 pg (27.0-33.0); Mean Corpuscular Volume 83.1 fL (80.0-98.0); Mean Platelet Volume 10.3 fL (9.4-12.3); Monocytes Absolute Auto 0.7 X10*3/uL (0.1-1.2); Monocytes Percent Auto 8.2 % (2-11); Neutrophils Absolute Auto 4.9 x10*3/uL (2.0-8.3); Neutrophils Percent Auto 60.5 % (45-73); Platelet Count 482 X10*3/uL (160-400); Red Blood Count 3.96 X10*6/uL (4.20-5.50); Red Cell Distribution Width 13.3 % (11.0-16.0); White Blood Count 8.1 X10*3/uL (4.8-10.8)
[2024-02-16 14:39] LABS: Ferritin 12 ng/mL (10-122); Iron 54 mcg/dL (30-160); Percent Iron Saturation 15 % (15-50); TSH reflex Free T4 1.03 uIU/mL (0.32-4.0); Total Iron Binding Capacity 361 mcg/dL (228-428); Unsaturated Iron Binding 307 ug/dL; Vitamin D 25-OH Total 25.5 ng/mL (>30)
[2024-02-16 14:42] LABS: Folate 11.2 ng/mL (> or = 4.0); Vitamin B12 506 pg/mL (200-900)
== END 2024-02-16 12:03 | disposition home or self-care (01) ==
LOC: HO.HHCL 12:02
PROVIDERS: Visit Provider Family Medicine
DX: N93.9 Abnormal uterine and vaginal bleeding, unspecified (principal); R53.83 Other fatigue; Z90.3 Acquired absence of stomach [part of]
CPT/HCPCS: 36415; 82306; 82607; 82728; 82746; 83540; 84443; 85025

== ENCOUNTER 2024-03-04 09:57 | Outpatient (REF) | payer MEDICAID, SELFPAY ==
[2024-03-04 11:26] LABS: MANUAL DIFF FLAG NO
[2024-03-04 11:31] LABS: Basophils Absolute Auto 0.1 X10*3/uL (0.0-0.2); Basophils Percent Auto 0.9 % (0-2); Eosinophils Absolute Auto 0.2 X10*3/uL (0.0-0.4); Eosinophils Percent Auto 1.8 % (0-4); Hematocrit 33.2 % (37.0-47.0); Hemoglobin 10.4 g/dl (12.0-16.0); Imm Gran Abs Auto 0.03 X10*3/uL (0.00-0.03); Imm Gran Pct Auto 0.4 % (0.0-0.4); Lymphocytes Absolute Auto 2.2 X10*3/uL (1.2-4.9); Lymphocytes Percent Auto 25.4 % (20-40); Mean Corpuscular HGB Conc 31.3 g/dl (31.0-35.0); Mean Corpuscular Hemoglobin 25.5 pg (27.0-33.0); Mean Corpuscular Volume 81.4 fL (80.0-98.0); Mean Platelet Volume 10.2 fL (9.4-12.3); Monocytes Absolute Auto 0.5 X10*3/uL (0.1-1.2); Neutrophils Absolute Auto 5.5 x10*3/uL (2.0-8.3); Neutrophils Percent Auto 65.5 % (45-73); Platelet Count 442 X10*3/uL (160-400); Red Blood Count 4.08 X10*6/uL (4.20-5.50); Red Cell Distribution Width 13.6 % (11.0-16.0); White Blood Count 8.5 X10*3/uL (4.8-10.8)
== END 2024-03-04 09:58 | disposition home or self-care (01) ==
LOC: HO.HHCL 09:57
PROVIDERS: Visit Provider Family Medicine
DX: D50.0 Iron deficiency anemia secondary to blood loss (chronic) (principal)
CPT/HCPCS: 36415; 85025

== ENCOUNTER 2024-04-04 11:35 | Outpatient (AMB) | payer MEDICAID, SELFPAY ==
--- NOTE | 2024-04-04 11:37 | A.OFFVIS_ITS ---
VS Expanded 04/04/24 11:44 BP 105/53 L Blood Pressure Location Rt brachial Blood Pressure Position Sitting Pulse 90 Pulse Source Pulse Oximeter Temp 98.0 F Temperature Source Temporal Artery Scan Pulse Oximetry 98 Oxygen Delivery Method Room Air Height 5 ft 3.5 in Weight 200 lb 12.8 oz BMI 35.0 Body Fat % 38.0 Body Fat Mass 76.2 Fat Free Mass 124.4 Visceral Fat Rating 9.0 Body Water % 44.3 Body Water Mass 88.8 Muscle Mass/Score 118.2 Basal Metabolic Rate/Score 1,714 Intake Visit Reasons: OV PO LSG 07/24/18 Allergies Seasonal Allergies Allergy (Verified 04/04/24 11:40) Watery Eye Medication List - Last Reconciled 04/04/24 by PIYUSH Diaz acetaminophen 975 mg PO Q6H PRN albuterol sulfate 90 mcg/actuation (Ventolin HFA) 0 mcg inhalation fluticasone propionate 50 mcg/actuation 1 spray intranasal DAILY loratadine 10 mg PO QAM mirabegron ER (Myrbetriq) 50 mg PO DAILY ondansetron 4 mg PO Q8H PRN oxycodone 5 mg PO Q8H PRN pantoprazole 40 mg PO DAILY penicillin V potassium 500 mg PO BID 10 days sodium chloride 0.65% (Deep Sea Nasal) 2 sprays intranasal sucralfate 1 g PO QID HPI Comments Details: Pt is s/p LSG 07/24/2018. Has not been seen by our office since 2019 at which time weight was 185. Was seen recently at both [facility] and [facility] for abdominal pain and heartburn. Pt points to epigastrium and reports my stomach has been hurting here, the pain goes around to the upper part of my back. I've been having heartburn almost every night and vomiting. She vomits yellow liquid. Pain occurs mostly when she eats and drinks. Anything makes the pain worse, water better than other things but she still has pain with water. Has been going on for 3 months. Not following a formal meal plan. Occasional dark stools. Feeling lightheaded/dizzy more often recently, even at rest. Has an IUD. Pt had a CT scan at [facility]- reportedly saw a hiatal hernia. Was also seen at [facility] via x-ray per patient. Last endoscopy was January 2024 at [facility] with GI. Pt is unsure whether inflammation was noted at the time, they did see HH at that endoscopy. No tobacco, no EtOH. Was taking ibuprofen previously but stopped herself, knew she shouldn't take it because of her surgery. Taking PPI BID and carafate QID. Tries to do home workouts. [facility] Medical History (Updated 04/04/24 @ 12:23 by PIYUSH Diaz) Dysphagia Rectal bleeding Anemia Asthma Surgical History (Updated 04/04/24 @ 11:43 by Cynthia Garcia CMA) Hx of carpal tunnel repair Hx of cholecystectomy History of sleeve gastrectomy Family History Father No problems noted. Mother No problems noted. Social History Alcohol intake: current Alcohol intake frequency: does not drink Patient Tobacco Use Status: Never used Tobacco Physical Exam Vital Signs: Last Vital Signs Temp 98.0 F 04/04/24 11:44 Pulse 90 04/04/24 11:44 BP 105/53 L 04/04/24 11:44 Pulse Ox 98 04/04/24 11:44 Oxygen Delivery Method Room Air 04/04/24 11:44 BMI result Body Mass Index 35.0 Const General: cooperative, comfortable and no acute distress Orientation/consciousness: patient oriented x3 GI Other: soft, tender in epigastrium with voluntary guarding, no rebound/peritonitis no ndistended, incisions well healed, no hernia, no masses Neuro General: patient oriented x3 Assessment & Plan Assessment & Plan (1) Abdominal pain: Code(s): R10.9 - Unspecified abdominal pain Category: Medical (2) Obesity: Code(s): E66.9 - Obesity, unspecified Category: Medical Plan Pt with ongoing abdominal pain in the setting of previous LSG, worsening anemia with some black stools, prior NSAID use and possible recurrent hiatal hernia. Refractory to max PPI/carafate therapy. I think she would benefit from repeat endoscopy with Dr Beronica garza assess. Will obtain previous EGD report from [facility]. In the meantime recommended meal plan of 3 Celebrate protein shakes + 1 small soft meal 4 forks of protein per day. Take 2 hours to drink shakes. Will contact pt with decision on repeat endoscopy. I spent a total of 45 minutes reviewing/updating records, examining the patient and counseling the patient on weight management as detailed above.
[2024-04-04 11:44] VITALS: BP 105/53; PULSE 90; TEMP 36.7; O2SAT 98; BMI 35.0
== END 2024-04-04 12:27 | disposition home or self-care (01) ==
PROVIDERS: PCP Registered Nurse; Visit Provider Physician Assistant Surgical
DX: R10.9 Unspecified abdominal pain (principal); E66.9 Obesity, unspecified
CPT/HCPCS: 99215

== ENCOUNTER → 2024-04-04 11:35 | Outpatient (BNVA) | payer MEDICAID, SELFPAY | PROVIDERS: PCP Registered Nurse; Visit Provider Physician Assistant Surgical | DX: R10.9 Unspecified abdominal pain (principal); E66.9 Obesity, unspecified; Z98.84 Bariatric surgery status; Z68.35 Body mass index [BMI] 35.0-35.9, adult | CPT/HCPCS: 99212 ==

== ENCOUNTER 2024-04-11 09:10 | Outpatient (REF) | payer MEDICAID, SELFPAY ==
[2024-04-11 09:31] LABS: MANUAL DIFF FLAG NO
[2024-04-11 09:48] LABS: Basophils Absolute Auto 0.1 X10*3/uL (0.0-0.2); Basophils Percent Auto 0.9 % (0-2); Eosinophils Absolute Auto 0.1 X10*3/uL (0.0-0.4); Eosinophils Percent Auto 2.1 % (0-4); Hematocrit 31.2 % (37.0-47.0); Hemoglobin 9.9 g/dl (12.0-16.0); Imm Gran Abs Auto 0.02 X10*3/uL (0.00-0.03); Imm Gran Pct Auto 0.3 % (0.0-0.4); Lymphocytes Absolute Auto 1.9 X10*3/uL (1.2-4.9); Mean Corpuscular HGB Conc 31.7 g/dl (31.0-35.0); Mean Corpuscular Hemoglobin 24.8 pg (27.0-33.0); Mean Corpuscular Volume 78.2 fL (80.0-98.0); Mean Platelet Volume 10.3 fL (9.4-12.3); Monocytes Absolute Auto 0.5 X10*3/uL (0.1-1.2); Monocytes Percent Auto 6.7 % (2-11); Neutrophils Absolute Auto 4.2 x10*3/uL (2.0-8.3); Platelet Count 448 X10*3/uL (160-400); Red Blood Count 3.99 X10*6/uL (4.20-5.50); Red Cell Distribution Width 15.1 % (11.0-16.0); White Blood Count 6.7 X10*3/uL (4.8-10.8)
[2024-04-11 09:56] LABS: Estimated Average Glucose 108 mg/dL; Hemoglobin A1C 96.2578 umol/L; Hemoglobin A1c % 5.4 % (<6.0); Total Hemoglobin (HGBA1C) 2725.7249 umol/L
[2024-04-11 10:47] LABS: Alanine Aminotransferase 31 U/L (0-31); Albumin Level 4.1 g/dL (3.5-5.0); Alkaline Phosphatase 84 U/L (39-117); Anion Gap 10 (12-20); Aspartate Amino Transferase 113 U/L (5-31); Bilirubin Total 0.3 mg/dL (0.0-1.0); Blood Urea Nitrogen 10 mg/dL (9-16); C Reactive Protein 0.64 mg/dL (< or = 0.50); Calcium 9.5 mg/dL (8.4-10.2); Carbon Dioxide 27 mmol/L (22-29); Chloride 108 mmol/L (96-108); Cholesterol 163 mg/dL (<200); Estimated Glomerular Filt Rate > 60; Glucose Random 91 mg/dL (60-115); HDL Cholesterol 39 mg/dL (>40); Iron 30 mcg/dL (30-160); LDL Cholesterol Calculated 104 mg/dL (<100); Percent Iron Saturation 8 % (15-50); Potassium 4.2 mmol/L (3.3-5.1); Sodium 141 mmol/L (135-145); Total Iron Binding Capacity 360 mcg/dL (228-428); Total Protein 7.3 g/dL (6.5-8.0); Triglycerides 103 mg/dL (<150); Unsaturated Iron Binding 330 ug/dL
[2024-04-11 10:49] LABS: Ferritin 7 ng/mL (10-122); Insulin 12 uU/mL (2-29); TSH reflex Free T4 1.01 uIU/mL (0.32-4.0)
[2024-04-11 11:06] LABS: Folate 11.7 ng/mL (> or = 4.0); Vitamin B12 510 pg/mL (200-900)
[2024-04-14 23:19] LABS: Zinc 63 mcg/dL (60-130)
[2024-04-17 06:23] LABS: Vitamin B1 22 nmol/L (8-30)
[2024-04-18 23:38] LABS: Vitamin A 46 mcg/dL (38-98)
== END 2024-04-11 09:11 | disposition home or self-care (01) ==
LOC: HO.LAB 09:10
PROVIDERS: PCP Registered Nurse; Visit Provider Physician Assistant Surgical
DX: R10.9 Unspecified abdominal pain (principal); Z90.3 Acquired absence of stomach [part of]
CPT/HCPCS: 36415; 80053; 80061; 82306; 82607; 82728; 82746; 83036; 83525; 83540; 84425; 84443; 84590; 84630; 85025; 86140

== ENCOUNTER 2024-05-08 10:54 | Day surgery (SDC) | payer MEDICAID, SELFPAY ==
[2024-05-06 09:28] VITALS: BMI 34.9
--- NOTE | 2024-05-07 08:17 | P.CONAN_ITS ---
Documented by User: Brittaney Jacobsen NP 05/07/24 08:18 HPI - Anesthesia Eval Consult details Narrative: 38yo F for Upper Endoscopy PMFSH Active Problems Active Problems: All Active Problems Status post sleeve gastrectomy (Acute) Obesity (Acute) Abdominal pain (Acute) Left flank pain (Acute) OAB (overactive bladder) (Acute) Kidney stone on left side (Acute) Liver lesion (Acute) Renal calcification (Acute) High urine leukocyte count (Acute) UTI symptoms (Acute) Urge incontinence of urine (Acute) Sensation of pressure in bladder area (Acute) Pelvic floor weakness (Acute) Past Medical History Medical History Dysphagia Rectal bleeding Anemia Asthma Family History Family History Father No problems noted. Mother No problems noted. Surgical History Surgical History History of esophagogastroduodenoscopy (EGD) Hx of carpal tunnel repair Hx of cholecystectomy History of sleeve gastrectomy Social History Social History Are you a primary acute care nurse to a significant other at home: No Do you presently have visiting nurse or other home services: No Alcohol intake: current Alcohol intake frequency: does not drink Patient Tobacco Use Status: Never used Tobacco Use of substances other than those prescribed or required for medical reasons: No Have you been hit, kicked, punched, or otherwise hurt by someone within the past year? If so, by whom?: No Are you DNR?: No Advance Directives: No Advance Directives Information Provided: No Advance Directives on File: No Recently lost weight without trying: No How much weight loss: Not applicable Eating poorly because of decreased appetite: No Nutrition screen score: 0 Nutrition Risks: No Nutritional Risk Patient : No : No Poor oral hygiene: No Meds Allergies Allergy/AdvReac Type Severity Reaction Status Date / Time Seasonal Allergies Allergy Watery Eye Verified 05/08/24 11:44 Home Medications ?Medication ?Instructions ?Recorded ?Confirmed ?Last Taken ?Type albuterol sulfate 90 mcg/actuation 2 puff inhalation Q4H PRN 08/23/22 05/06/24 Unknown History aerosol inhaler (Ventolin HFA) Shortness Of Breath Or Wheezing sodium chloride 0.65 % nasal spray 2 spray intranasal DAILY congestion 08/23/22 05/06/24 Unknown History aerosol (Deep Sea Nasal) fluticasone propionate 50 1 spray intranasal DAILY 11/18/22 05/06/24 Unknown History mcg/actuation nasal spray,suspension loratadine 10 mg tablet 10 mg PO QAM 11/18/22 05/06/24 Unknown History acetaminophen 325 mg tablet 975 mg PO Q6H PRN mild pain 04/04/24 05/06/24 U nknown History ondansetron 4 mg disintegrating 4 mg PO Q8H PRN nausea 04/04/24 05/06/24 Unknown History tablet oxycodone 5 mg tablet 5 mg PO Q8H PRN severe pain 04/04/24 05/06/24 Unknown His tory pantoprazole 40 mg tablet,delayed 40 mg PO DAILY 04/04/24 05/06/24 Unknown History release sucralfate 1 gram tablet 1 g PO QID 04/04/24 05/06/24 Unknown History Exam Height,Weight and Vital Signs: Height 5 ft 3.5 in Weight 90.718 kg Assessment and Plan Assessment Anesthesia Assessment: Chart Reviewed Documented by User: Yaima Washington MD 05/08/24 13:05 [facility] Past Medical History Medical History Dysphagia Rectal bleeding Anemia Asthma Family History Family History Father No problems noted. Mother No problems noted. Surgical History Surgical History History of esophagogastroduodenoscopy (EGD) Hx of carpal tunnel repair Hx of cholecystectomy History of sleeve gastrectomy History of Problems with Anesthesia: No Social History Social History Are you a primary acute care nurse to a significant other at home: No Do you presently have visiting nurse or other home services: No Alcohol intake: current Alcohol intake frequency: does not drink Patient Tobacco Use Status: Never used Tobacco Use of substances other than those prescribed or required for medical reasons: No Have you been hit, kicked, punched, or otherwise hurt by someone within the past year? If so, by whom?: No Are you DNR?: No Advance Directives: No Advance Directives Information Provided: No Advance Directives on File: No Recently lost weight without trying: No How much weight loss: Not applicable Eating poorly because of decreased appetite: No Nutrition screen score: 0 Nutrition Risks: No Nutritional Risk Patient : No : No Poor oral hygiene: No Meds Allergies Allergy/AdvReac Type Severity Reaction Status Date / Time Seasonal Allergies Allergy Watery Eye Verified 05/08/24 11:44 Home Medications ?Medication ?Instructions ?Recorded ?Confirmed ?Last Taken ?Type albuterol sulfate 90 mcg/actuation 2 puff inhalation Q4H PRN 08/23/22 05/06/24 Unknown History aerosol inhaler (Ventolin HFA) Shortness Of Breath Or Wheezing sodium chloride 0.65 % nasal spray 2 spray intranasal DAILY congestion 08/23/22 05/06/24 Unknown History aerosol (Deep Sea Nasal) fluticasone propionate 50 1 spray intranasal DAILY 11/18/22 05/06/24 Unknown History mcg/actuation nasal spray,suspension loratadine 10 mg tablet 10 mg PO QAM 11/18/22 05/06/24 Unknown History acetaminophen 325 mg tablet 975 mg PO Q6H PRN mild pain 04/04/24 05/06/24 Unknown History ondansetron 4 mg disintegrating 4 mg PO Q8H PRN nausea 04/04/24 05/06/24 Unknown History tablet oxycodone 5 mg tablet 5 mg PO Q8H PRN severe pain 04/04/24 05/06/24 Unknown History pantoprazole 40 mg tablet,delayed 40 mg PO DAILY 04/04/24 05/06/24 Unknown History release sucralfate 1 gram tablet 1 g PO QID 04/04/24 05/06/24 Unknown History Exam Airway Mallampati Class: II TM Dist: >3cm Neck ROM: Full Loose/Missing/Broken Teeth: No Heart: RRR Lungs: CTA Assessment and Plan Assessment Anesthesia Assessment: Anesthesia Plan Discussed Final Anesthetic Review History of Problems with Anesthesia: No NPO: Yes ASA Class: II Final Preanesthetic Review: Meds/Allgs Chart Reviewed, Consent Obtained/Reviewed and Anes Risks/Benef Reviewed Patient Risk: Low Procedure Risk: Intermediate Anesthetic Plan Anesthetic Plan: MAC: Disposition: Standard PACU
[2024-05-08] VITALS (9 sets, daily range): BP systolic 117–132; BP diastolic 55–86; PULSE 78–91; RESP 16–18; TEMP 36.4–36.9; O2SAT 98–100; BMI 35.7
[2024-05-08 11:54] LABS: UPreg QC Valid YES
[2024-05-08 11:55] LABS: Urine Pregnancy NEGATIVE (NEGATIVE)
[2024-05-08] MEDS: Lactated Ringers 1,000 ML 80 ML IVCONT (12:07)
--- NOTE | 2024-05-08 13:08 | P.HPSUR_ITS ---
Pre-Procedural Eval Section A - 24 Hr Update-Section A only Date of Service: 05/08/24 The patient is an INPATIENT: No The patient has been examined within 24 hours of the surgical procedure. The History & Physical has been completed within 30 days and I have reviewed it.: Yes Section B - Complete if H&P > 30 days Chief Complaint: Morbid (severe) obesity due to excess calories Details of Present Illness: GERD, s/p sleeve gastrectomy Relevant Family History (Specify if Yes): No Relevant Social History: None Present Medications: None Medical History: No relevant PMH History of Previous Operations: Relevant previous surgery/procedure and date(s) (Laparoscopic sleeve gastrectomy) Allergies: Allergies Allergy/AdvReac Type Severity Reaction Status Date / Time Seasonal Allergies Allergy Watery Eye Verified 05/08/24 11:44 Review of Systems Sugical H&P ROS: Negative: Constitution, Cardiovascular, Respiratory, Neurological, Psychiatric, Hem-Onc, Allergic/Immunologic, Genitourinary, Mu sculoskeletal, Integumentary, Endocrine and Eyes/Ears/Nose/Throat and Yes, Specify: Gastrointestinal (abdominal pain and GERD) Exam Surgical H&P Exam: Normal: HEENT, Normal: Heart, Normal: Lungs, Normal: Extremities, Normal: Abdomen, Normal: Skin and Normal: Neurological Plan Diagnosis/Plan: Unchanged (EGD to assess etiology of GERD in relation to the sleeve gastrectomy. Risks of bleeding and perforation were discussed with the patient and she is in agreement with the plan.) I have reviewed the history and physical and performed a pertinent physical examination on my patient. No changes have occurred unless specified. Time Spent With Patient Time: Total time managing care of this patient today ____ minutes.
--- NOTE | 2024-05-08 13:14 | PM.OP ---
Brief Operative Note Date of Service: 05/08/24 Pre-op diagnosis: GERD and abdominal pain, s/p sleeve gastrectomy Post-op diagnosis: same Procedure: PROCEDURE DATE: 05/08/2024 PREOPERATIVE DIAGNOSIS: GERD and abdominal pain, s/p sleeve gastrectomy POSTOPERATIVE DIAGNOSIS: ?Same as above. 1) small hiatal hernia, 2) gastritis, 3) esophagitis PROCEDURE: [id number] with biopsies Surgeon: ?Phu Power M.D.. Ph.D. Cloth Booker: None ? Anesthesia: IV sedation Estimated blood loss: ?Minimal FINDINGS AND PROCEDURE: ? OPERATIVE INDICATIONS: ?The patient is a 38 year old female known to me who underwent a laparoscopic sleeve gastrectomy by me. The patient had remarkable weight loss so far and had a completely uneventful recovery.? The patient was doing very well but has recently been complaining of GERD and epigastric pain. She had several CTs and MRIs of the abdomen and per my review there is small to moderate fixed diaphragmatic hernia. Based on this information I recommended an upper endoscopy to evaluate the patient's symptoms. Risks and complications of the surgery were discussed with the patient in advance particularly the possibility of perforation or bleeding that may require surgical intervention. The patient understood the risks and was in agreement with the plan. ? PROCEDURE: After informed consent was obtained by the patient, the patient was ?transferred to the Operating Room and was placed in the supine position.? After successful induction of IV sedation, a mouth block was inserted and the patient was placed in the left lateral decubitus position. An upper endoscopy was performed next, the oropharynx and esophagus appeared within the normal limits. There was a small 3-4cm hiatal hernia. The z-line was irregular with tongues of gastric mucosa protruding into the esophagus in less than 50% circumference. Two biopsies were obtained from the distal esophagus 2-3 cm proximal to the GE junction and two additional biopsies from the GE junction. The sleeve was entered. The proximal portion distal to the diaphragmatic hernia was somewhat enlarged with the outlet of the sleeve to the antrum, being of smaller caliber but without any narrowing or difficulty passing the scope through.. There was mild gastritis at the sleeve. There was no stricture or ulcer. Biopsies were obtained from the proximal sleeve as well as the distal antrum. No significant bleeding was noted from any of the biopsy sites. Retroflexion was not performed due to the sleeve. The scope was then advanced into the duodenum which appeared to be normal as well. At that point the duodenum ?and the sleeve were decompressed and the scope was withdrawn from the patient's mouth. The patient extubated and was transferred in stable condition to the Recovery Room for further care. I was present and performed all steps of the procedure. There were no residents to assist with this case. Phu Power M.D., Ph.D. Surgeon: Oswaldo Power MD Anesthesia: MAC Was an Cloth Booker used for this Procedure?: No Estimated blood loss (mL): 0 IV fluids (mL): 400 Urine output (mL): 0 (No Nunez to record output) Pathology: other (1) antrum x1, 2) proximal sleeve/gastric fundus x1, 3) EGJ x2, 4) distal esophagus x2) Condition: stable Disposition: PACU
[2024-05-08] MEDS: Thiamine HCL 100 MG in 0.9 % Sodium Chloride 100 ML 202 MG IV (14:04)
[2024-05-08] MEDS: Cyanocobalamin (Vitamin B-12) 1,000 MCG/ML VIAL 1000 MCG IM (14:19)
[2024-05-08] MEDS: Folic Acid 1 MG in 0.9 % Sodium Chloride 50 ML 100.4 MG IV (14:36)
[2024-05-08] MEDS: Iron Sucrose Complex 400 MG in 0.9 % Sodium Chloride 250 ML 180 MG IV (14:55)
== END 2024-05-08 16:36 | disposition home or self-care (01) ==
PROVIDERS: Nurse Practitioner; PCP Registered Nurse; Visit Provider Surgery
PROC: 0DJ08ZZ Inspection of Upper Intestinal Tract, Via Natural or Artificial Opening Endoscopic (ICD-10-PCS; CPT 43235; principal; 2024-05-08 13:00)
DX: K21.9 Gastro-esophageal reflux disease without esophagitis (principal); E66.9 Obesity, unspecified; Z68.35 Body mass index [BMI] 35.0-35.9, adult; K29.50 Unspecified chronic gastritis without bleeding; Z98.84 Bariatric surgery status; K20.80 Other esophagitis without bleeding; R13.10 Dysphagia, unspecified; K44.9 Diaphragmatic hernia without obstruction or gangrene; D64.9 Anemia, unspecified; J45.909 Unspecified asthma, uncomplicated; Z79.899 Other long term (current) drug therapy; Z79.51 Long term (current) use of inhaled steroids; Z90.49 Acquired absence of other specified parts of digestive tract
CPT/HCPCS: 43239; 81025; 88305; 88313; 88342; J1756; J2003; J2704; J3411; J3420

== ENCOUNTER → 2024-05-08 10:54 | Outpatient (BNV) | payer MEDICAID, SELFPAY | PROVIDERS: PCP Registered Nurse; Visit Provider Surgery | DX: K44.9 Diaphragmatic hernia without obstruction or gangrene (principal) | CPT/HCPCS: 43239 ==

== ENCOUNTER → 2024-07-18 14:15 | Outpatient (BNV) | payer MEDICAID, SELFPAY | PROVIDERS: Visit Provider Radiology Diagnostic Radiology | DX: M25.512 Pain in left shoulder (principal) | CPT/HCPCS: 73030 ==